=== PATIENT | female | born 1975 | race Caucasian/White ===

== ENCOUNTER 2016-10-06 07:11 | Observation (INO) | payer BC, OTHER ==
[2016-10-06] MEDS ORDERED: NS 0.9% 1000 ML* 1,000 ML IV ONE (07:54)
[2016-10-06 08:47] LABS: Hematocrit 28 % (35-47); Mean Corpuscular HGB Conc 33 g/dl (31-36); Mean Corpuscular Hemoglobin 28 pg (27-31); Mean Corpuscular Volume 85 fL (80-97); Red Blood Count 3.26 10^6/ul (4.0-5.4); Red Cell Distribution Width 17 % (10.5-15); White Blood Count 13.5 10^3/ul (3.5-10.8)
[2016-10-06 08:49] LABS: Comments Flag Yes
[2016-10-06 08:50] LABS: Add Diff/Slide Review? Manual Diff Added
[2016-10-06 08:54] LABS: Albumin 2.5 g/dL (3.2-5.2); BUN/Creatinine Ratio 12.3 (8-20); EGFR African American 99.7 (>60); EGFR Non-African American 77.5 (>60); Globulin 3.3 g/dL (2-4); Potassium 3.7 mmol/L (3.5-5.0); Total Bilirubin 0.5 mg/dL (0.2-1.0); Total Protein 5.8 g/dL (6.4-8.9)
[2016-10-06 08:59] LABS: Troponin I 0.22 ng/mL (<0.04)
--- NOTE | 2016-10-06 08:59 | RAD ---
Indication: Sepsis. Recent . History of asthma. Comparison: December 06, 2011 Technique: Upright AP 0835 hours Report: Low lung volumes with associated subsegmental atelectasis. Grossly clear pleural spaces. Upper normal heart size accounting for low lung volumes. Unremarkable central pulmonary vasculature. IMPRESSION: Hypoventilated exam with subsegmental atelectasis. No compelling evidence for pneumonia.
[2016-10-06 09:26] LABS: Immature Granulocytes 11 % (0-9); Neutrophil % 87 % (38-83)
[2016-10-06 09:29] LABS: RBC Morphology Normal (Normal)
[2016-10-06 09:33] LABS: Urine Bacteria 1+ (Absent); Urine Bilirubin Negative (Negative); Urine Glucose Negative (Negative); Urine Nitrite Positive (Negative)
[2016-10-06] MEDS ORDERED: Iohexol 350* (CONTRAST) 500 ML MDV IV ONE ×2 (09:36→09:42)
--- NOTE | 2016-10-06 10:57 | RAD ---
INDICATION: Sepsis. COMPARISON: Comparison is made with a prior chest x-ray study from October 06, 2016. TECHNIQUE: A CT angiogram of the chest was performed with intravenous following intravenous injection of 176 ml of Omnipaque 350 nonionic contrast. Contiguous axial sections were obtained from the lung apices through the lung bases. Images were reconstructed in the coronal and sagittal planes. The patient had was scanned and injected twice. The first study did not work due to a table malfunction on the CT scanner. The second study is suboptimal due to a pressure limit hit on the contrast injector. FINDINGS: There is suboptimal opacification of the pulmonary arteries limiting the study. No central pulmonary embolus is seen. The heart is within normal limits in size. No pericardial effusion is present. The thoracic aorta is normal in caliber and demonstrates homogeneous contrast opacification. No significant enlarged mediastinal or hilar lymph nodes are seen. The lungs are clear. No pleural effusion is seen. Images of the upper abdomen demonstrate mild hepatosplenomegaly. No significant focal osseous abnormality is seen. The results of this exam were discussed with the referring clinician. IMPRESSION: 1. LIMITED STUDY OF THE PULMONARY ARTERIES DESCRIBED ABOVE. NO GROSS CENTRAL PULMONARY EMBOLUS IS SEEN. CONSIDER A NUCLEAR MEDICINE LUNG PERFUSION VENTILATION STUDY FOR FURTHER EVALUATION. 2. CLEAR LUNGS.
[2016-10-06] MEDS ORDERED: Enoxaparin(*) 40 MG/0.4 ML SYR SUBCUT SCH (12:00)
[2016-10-06] MEDS ORDERED: Ondansetron INJ* 2 MG/ML VIAL IV PRN (12:04)
[2016-10-06] MEDS ORDERED: Albuterol HFA INHALER* 8 gm MDI INH PRN (12:39)
[2016-10-06] MEDS ORDERED: oxyCODONE TAB* 5 MG TAB PO PRN (12:39)
--- NOTE | 2016-10-06 12:45 | PN ---
Hospitalist Progress Note H&P dictation pending. I did discuss this patient's case with Dr. Suarez with [facility]. From a gynecological standpoint, there is no acute need that we can identify at this time. She does agree that there is an increased risk for PE/ DVT in the 6 week post-operative period (pt is 1 week post op). VQ scan is pending. She does also state that the patient's troponins will likely be elevated in the post-operative and post- periods. Additionally, she recommends not transfusing the patient for anemia unless Hgb <7.0 or patient becomes symptomatic. Encourage ambulation and continue DVT prophylaxis, unless PE is noted, for which we will full anticoagulate the patient. Wound vac has no drainage and appears to be intact; at this time, we will leave this in place. No tenderness or clear s/s of infection noted around vacuum dressing. Appreciate [facility] input. Dr. Green's office notified of patient's hospitalization. She has a follow-up appointment with them tomorrow at 1515 and should be notified if she is still here and cannot keep this appointment.
[2016-10-06] MEDS ORDERED: cefTRIAXone VIAL(*) 1,000 MG in NS 0.9% 50 ML* 50 ML IVPB SCH (13:00)
[2016-10-06] MEDS ORDERED: Perflutren Lipid Microsphere* 1.1 MG/ML VIAL IV PRN (14:37)
[2016-10-06] MEDS: Acetaminophen TAB* 325 MG PO PRN ×2 (14:58→19:10)
[2016-10-06] MEDS: Enoxaparin(*) 60 MG/0.6 ML SYR SUBCUT SCH (14:58)
--- NOTE | 2016-10-06 14:59 | RAD ---
INDICATION: Short of breath. COMPARISON: CTA chest same date TECHNIQUE: Following the administration of 15.2 millicuries of xenon gas, anterior and posterior deep breath, equilibrium, and washout phase imaging was performed. Following the intravenous administration of 6.2 millicuries of technetium 99m, MAA, anterior, posterior, lateral, and oblique imaging of the chest was performed. This examination is mildly limited due to patient size. There is a stated height and weight of 5 feet 5 inches and 405 pounds. The patient's size would not allow for lateral imaging. FINDINGS: Ventilation images show normal ventilation. The perfusion images show no segmentally absent areas of ventilation/perfusion mismatch. The probability of acute pulmonary embolus is low. IMPRESSION: LOW PROBABILITY FOR ACUTE PULMONARY EMBOLUS.
[2016-10-06] MEDS: Docusate CAP* 100 MG PO SCH (20:48)
[2016-10-06] MEDS: Ferrous Sulfate TAB* 325 MG PO SCH (20:48)
[2016-10-06] MEDS: Metoprolol Tartrate TAB* 25 MG PO SCH (20:48)
[2016-10-06] MEDS: Methyldopa TAB* 250 MG PO SCH (20:49)
--- NOTE | 2016-10-06 21:09 | CONS ---
CARDIOLOGY CONSULTATION: DATE OF CONSULT: 10/06/16 REASON FOR CONSULT: Elevated troponin. CHIEF COMPLAINT: Nausea and vomiting. HISTORY OF PRESENT ILLNESS: Mrs. Webb is a 40-year-old woman with longstanding history of morbid obesity. She delivered her first child a week ago in [place] with a section (breech presentation). The patient was sent home on a Hemovac and has had intermittent episodes of nausea. This morning, the patient had persistent nausea. She has not vomited much, but she was retching today and she got very worried about her section incision and concern about the nausea and vomiting. She also told me she thinks she had a panic attack. She had a lot of trouble breathing, felt it was related to an asthma like reaction and got very, very panicky. She described chest discomfort and points to the upper substernal area and region around it. Currently, since she has been in the emergency room with medication and hydration, she said she is feeling much, much, much better. The patient has been taking narcotics and she has been taking antibiotics at home (clindamycin). She says the episode seem to correlate with an increase in pain not necessarily with using the pain medication. She has not been eating well, has some anorexia. She says she is fine eating food and does not get nauseated, but if she eats heavier food such as meat, she will get nauseated. PAST MEDICAL HISTORY: The patient has a past medical history of longstanding hypertension, morbid obesity with a BMI of 67, asthma, history of recurrent cellulitis in the lower extremities, depression, hirsutism. PAST SURGICAL HISTORY: Includes section last week and a lipoma removal from her forehead. OUTPATIENT MEDICATIONS: Include: 1. Methyldopa 500 mg b.i.d. 2. Vitamins. 3. Tylenol. 4. She was also sent home on Colace. 5. Iron. 6. Ibuprofen. 7. Oxycodone. 8. Ascorbic acid. 9. vitamins. 10. Albuterol inhaler. Current inpatient medications include: 1. Tylenol p.r.n. 2. Albuterol inhaler. 3. Vitamin C. 4. Ceftriaxone IV. 5. Colace. 6. Lovenox 60 mg q.12 hours. 7. Iron sulfate. 8. Lactated Ringer's. 9. Aldomet (methyldopa) 500 mg b.i.d. 10. vitamins. 11. Zofran. 12. She is also receiving lactated Ringer's. ALLERGIES: Include AUGMENTIN. She is intolerant to KEFLEX and AMOXICILLIN based on ER notes. FAMILY HISTORY: Negative for coronary artery disease. SOCIAL HISTORY: The patient is a nonsmoker. No history of alcohol. She has had trouble . She feels she is too dehydrated. She was working at [employer] in the recent past. REVIEW OF SYSTEMS: See history of present illness. Negative for fevers, chills , sweats, hematuria, dysuria, no recent cellulitis problems. PHYSICAL EXAM: The patient is seated morbidly obese, appears pale and comfortable. She is 5 feet 5 inches, weighs 405 pounds with a BMI of 67.4. Vital signs on arrival to the emergency room, sinus tachycardia at 116 beats per minute, 99.8, oxygen saturation 99% on room air, blood pressure 112/73. Skin: Warm, dry, but pale, no cyanosis, no rashes. The wound VAC on the abdomen appears intact, slightly pink skin under the Tegaderm. The left cheek is hyperemic. HEENT: Pupils are equal and round. Mucous membranes moderately dry. Neck: Thick without appreciable lymphadenopathy, thyromegaly, or increased JVP but difficult to exam. Breath sounds distant, but clear, no wheezing, rales or rhonchi. Coronary: Also distant S1, S2, regular without murmurs or rubs. Abdomen: Very rotund and obese, soft, nontender. Lower extremities are thickened most suggestive of lymphedema. They are not pitting. The areas of patchy erythema and scaling skin she attributes to old areas of cellulitis raise the possibility of venous insufficiency. DIAGNOSTIC STUDIES/LAB DATA: White count 13.5, hemoglobin 9, hematocrit 28, platelets clumped, INR 1.14. Sodium 136, potassium 3.7, chloride 102, bicarb 24 , BUN 10, creatinine 0.81, glucose 76, AST 12, ALT 12, troponin #1 0.22. Troponin #3 0.39. Total protein 5.8, albumin 2.5. Urinalysis was positive for protein, blood, nitrite, esterase positive, 3+ white cells and positive for bacteria. She also had squamous epithelial cells present. The patient's chest x-ray on admission did not show evidence of acute disease. The CTA was limited with suboptimal opacification of the pulmonary arteries. No gross central pulmonary emboli seen. Her ECG on arrival at 9:20 this morning showed sinus tachycardia, 108 beats a minute, QRS axis +60 with normal AV and IV conduction time. ST segment is unremarkable. Repeat EKG at 11:58 shows sinus rhythm at 95 beats a minute. Normal ST and T-waves. Lipids from 04/26/13 shows total cholesterol of 158, triglycerides 166, LDL cholesterol 78, HDL cholesterol 47. SUMMARY: Claudia Webb is a 40-year-old woman one week having delivered a healthy girl via due to breech positioning. The patient did well, said she felt fine in the hospital but on getting home, she developed intermittent nausea, small amounts of vomiting but presented to the hospital because of lots of retching, shortness of breath and feeling panicky and anxious about the impact on her section wound. Cardiac issues include mild elevation of troponins, her history of chest pain and shortness of breath. Elevated troponin have a differential of pulmonary embolism with her history of morbid obesity and recent delivery. She could have a peripartum cardiomyopathy and with her self described panic attack, she could have a form of Takotsubo syndrome and she could have underlying atherosclerotic heart disease. I recommend continuing with serial troponins as an option to start a low dose beta- nuno. As her lungs are clear, I think this is safe even with her asthma, consider just Toprol 25 mg a day. I wait the results of her echo and I concur with following up on additional evaluation for the possibility of pulmonary embolus. The nausea and vomiting is the patient's chief complaint, I suspect if all her nausea and vomiting were ischemic, her trops would be higher, so I think it is much more likely to be related to chronic pain medication possibly the clindamycin and there may be some social factors involved as well. I would try to adjust her medications to minimize medication induced or iatrogenic induced nausea, and I can concur with hydration as there is no evidence of congestive heart failure now, liberal IV hydration is fine. She appears to have urinary tract infection, the addition of ceftriaxone is noted and await the culture results. We will follow with you for now. I do not recommend a cardiac catheterization at this point and with her BMI of 67 and being over 400 pounds, she is not a candidate for a stress test with imaging as she is too big for our table. Options down the road for a stress test would a plain treadmill if we can find a treadmill that can handle her weight. For full risk factor stratification, I would consider getting lipids if she has not had them been done in the last year. CC: Hospitalist Service; Dr. Charles Green, [employer] [place]; Dr. Marciano Rojo* [id number]/[facility] #: [id number] [facility]ON HOSPITALSammy
--- NOTE | 2016-10-06 21:36 | ECHO ---
Patient: CARMENZA MCELROY [facility] Rec#: [id number] : 1975 Date: 10/06/2016 Age: 40y Height: 165.1 cm / 65.0 in Weight: 183.7 kg / 404.9 lbs Sex: F BSA: 2.7 Room#: 450 Admit Date#: 10/06/2016 Type: Inpatient Referring: Sabine Allen Reading: Amisha Tello MD Pick Up And Delivery Driver: Vicki Liu RN RDCS CC: Marciano Rojo MD Transthoracic Echocardiogram Indication: Elevated troponin levels BP: 130/60 HR: 93 Rhythm: NSR Findings History: HTN, asthma, DJD, morbid obesity, sepsis, S/P 7 days ago with wound vac placement Technical Comments: The study is technically limited due to poor apical windows. The study is technically limited due to patient body habitus. The study was technically limited due to the patient's inability to lay in the left lateral decubitus position. Completed at 1730. Left Ventricle: The left ventricular chamber size is normal. Mild concentric left ventricular hypertrophy is observed. Global left ventricular wall motion and contractility are within normal limits. The left ventricle appears hyperdynamic.normal to hyperdynamic. The estimated ejection fraction is 60-65%. Normal left ventricular diastolic filling is observed. Left Atrium: The left atrium is mildly dilated. Right Ventricle: The right ventricle wall thickness is moderately increased. The right ventricular cavity size is normal. The right ventricular global systolic function is mildly to moderately reduced. Right Atrium: The right atrium is mildly dilated. Aortic Valve: The aortic valve leaflets are mildly thickened. There is no evidence of aortic regurgitation. There is no evidence of aortic stenosis. Mitral Valve: The mitral valve leaflets are mildly thickened. There is mild mitral regurgitation. There is no evidence of mitral stenosis. Tricuspid Valve: The tricuspid valve leaflets are normal. There is mild to moderate tricuspid regurgitation.closer to moderate. There is evidence of mild pulmonary hypertension. Pulmonic Valve: The pulmonic valve structure is not well visualized. There is a trace pulmonic regurgitation. There is no pulmonic stenosis. Pericardium: There is no significant pericardial effusion. A pericardial fat pad is visualized. Aorta: There is no dilatation of the ascending aorta. There is no dilatation of the aortic arch. The aortic root is normal in size. Pulmonary Artery: The main pulmonary artery is not well visualized. Venous: The inferior vena cava appears normal in size. There is a greater than 50% respiratory change in the inferior vena cava dimension. Contrast: Definity was used to optimize study. A total of 2 ml of diluted Definity was administered IV to enhance the imaging of the LV and RV. See Images 2-17. Conclusions The study is technically limited due to patient body habitus. Definity contrast agent was used to optimize study. Mild concentric left ventricular hypertrophy is observed. Global left ventricular wall motion and contractility are within normal limits. The left ventricle shows normal to hyperdynamic systolic function and normal diastolic filling pattern. The estimated ejection fraction is 60-65%. The right ventricle wall thickness is increased. The right ventricular global systolic function is mildly to moderately reduced. The aortic valve leaflets are mildly thickened with normal function. There is mild mitral regurgitation. There is mild to moderate tricuspid regurgitation (closer to moderate). There is evidence of mild pulmonary hypertension: PA pressure is 41 mmHg. No prior echo available to compare. Measurements Name Value Normal Range RVDdMajor (2D) 3.9 cm (2.2 - 4.4) RVAW (2D) 1 cm (0.2 - 0.5) RAd ISD 4CH 5.3 cm (3.4 - 4.9) RA (A4C)W 4.4 cm (2.9 - 4.6) IVSd (2D) 1.1 cm (0.6 - 1) LVPWd (2D) 10 cm (0.6 - 1) LVIDd (2D) 4.5 cm (3.6 - 5.4) LVIDs (2D) 3.3 cm - LV FS (2D) 26 % (25 - 45) Aortic Annulus 2.2 cm (1.4 - 2.6) Ao root diameter (2D) 3 cm (2.1 - 3.5) Ascending Ao 3 cm (2.1 - 3.4) Aortic arch 2.6 cm (1.8 - 3.4) LA dimension (AP) 2D 3.9 cm (2.3 - 3.8) LAd ISD 4CH 5.4 cm (2.9 - 5.3) LA ISD 4CH W 4.9 cm (2.5 - 4.5) Name Value Normal Range LA ESV SP 4CH (A/L) 68 ml - LA ESV SP 2CH (A/L) 54 ml - LA ESV BP (A/L) 67 ml - LA ESV BP (A/L) index 25.2 ml/m2 - LA ESV SP 4CH (MOD) 59 ml - LA ESV SP 2CH (MOD) 52 ml - Name Value Normal Range MV E-wave Vmax 1.4 m/sec - MV deceleration time 186 msec - MV A-wave Vmax 0.7 m/sec - MV E:A ratio 2.1 ratio - LV septal e' Vmax 0.11 m/sec - LV lateral e' Vmax 0.14 m/sec - LV E:e' septal ratio 12.7 ratio - LV E:e' lateral ratio 10 ratio - Name Value Normal Range AV Vmax 1.9 m/sec - AV VTI 36.1 cm - AV peak gradient 14.7 mmHg - AV mean gradient 8.4 mmHg - LVOT Vmax 1.6 m/sec - LVOT VTI 34.5 cm - LVOT peak gradient 10 mmHg - LVOT mean gradient 5.5 mmHg - ALLYSSA Vmax 1.3 m/sec - Name Value Normal Range MV Vmax 1.6 m/sec - MV VTI 27.6 cm - MV peak gradient 10.8 mmHg - MV mean gradient 3.3 mmHg - MV PHT 52 msec - MVA (PHT) 4.2 cm2 - Name Value Normal Range TR Vmax 3.1 m/sec - TR peak gradient 38 mmHg - RAP 3 mmHg - RVSP 41 mmHg - IVC diameter 1.8 cm - Name Value Normal Range PV Vmax 1.1 m/sec -
--- NOTE | 2016-10-06 22:24 | HP ---
MEDICINE HISTORY AND PHYSICAL: DATE OF ADMISSION: 10/06/16 PROVIDER: Deidre Sweet NP. ATTENDING PHYSICIAN: Dr. Rohan Galvan *(as dictated by Deidre Sweet NP). CONSULTING PHYSICIAN: Dr. Amisha Tello, Cardiology. PRIMARY CARE PHYSICIAN: Dr. Marciano Rojo. CHIEF COMPLAINT: Nausea, vomiting. HISTORY OF PRESENT ILLNESS: Ms. Webb is a 40-year-old female who was recently discharged from [facility] on 10/03/16, after undergoing C -section and delivery of a healthy female baby that was born 27 days early. Ms. Webb has been followed at [facility] by Dr. Green throughout her care. The patient was referred to [place] due to her high risk and comorbidities. She is 2, para 1, with a history of one spontaneous . Ms. Webb underwent a on 09/29/16, due to spontaneous rupture of membranes. She tolerated the surgery well by report on the patient and had a low transverse incision that was treated with a wound VAC. The patient reports no drainage and she has been discharged to home on the wound VAC. She has been home since 10/03/16 and since she has been home, has reported intermittent nausea and vomiting. She denies any diarrhea. She reports having a few episodes of vomiting a day and states that the nausea is off and on, and usually immediately precedes her urge to vomit. She also reports having dry heaving. Her last bowel movement was today and it was normal. She reports poor p.o. intake secondary to nausea. She has been able to drink some fluids. She reports a low-grade fever today in the 100s at home. She denies any other signs or symptoms or concerns for infection at home. She states that she has not had much output from the wound VAC and has not noticed any increased pain or redness around the wound VAC. She does report chronic cellulitis to her lower extremities, but states that they look unchanged and denies any increasing pain, swelling, or redness. This morning, she does report having chills and shaking. She also describes what she calls a panic attack and describes a period where she had difficulty catching her breath. She reports that she had attempted to use her asthma inhaler, but states that she did not feel like it got into her lungs. She was able to calm herself down and states that her breathing improved. The patient specifically denies chest pain and only reports this one episode of shortness of breath this morning. Again, she reports subjective chills this morning. She reports decreased p.o. intake. Denies any sick contacts. She denies any new edema to the lower extremities. She denies any productive cough , but states she has a dry cough due to dehydration. She reports controlled abdominal pain that only hurts with cough and retching at the site of her wound VAC. She reports constipation. She reports dark urine, but denies any dysuria or frequency of urine. She denies any new focal weakness or sensory loss. She denies any new visual, hearing, or swallowing complaints. She denies any new muscle or joint pain. She denies any new rashes or lesions. I did call Dr. Green's office. They said that she is due for an appointment and checkup tomorrow, on 10/07/16, at 1515. I did notify them that she is here. If she is discharged on 10/07/16, they will honor this appointment time with her if she is able to make it. PAST MEDICAL HISTORY: Includes: 1. Hypertension. 2. Morbid obesity with a BMI of 57. 3. Asthma. 4. History of chronic cellulitis in bilateral lower extremities. 5. History of depression. 6. Degenerative joint disease. 7. Degenerative disk disease in the neck. HOME MEDICATIONS: 1. Methyldopa 500 mg b.i.d. 2. Docusate 100 mg b.i.d. 3. vitamin 1 tab daily. 4. Albuterol inhaler 2 puffs inhaled q.6 hours p.r.n. 5. Ferrous sulfate 65 mg b.i.d. 6. Oxycodone 5 mg q.6 hours p.r.n. 7. Ibuprofen 600 mg q.6 hours p.r.n. 8. Ascorbic acid 1000 mg daily. ALLERGIES: AUGMENTIN which causes nausea. FAMILY HISTORY: She denies any history of coronary artery disease or cancer in her family. She reports a father and a maternal grandmother with diabetes. She states that her mother has a history of low blood sugars. SOCIAL HISTORY: She denies any tobacco, alcohol, or illicit drug use. She works at [employer] in [place], but has been off of work since July due to her . She has her , and Ciaran Webb is her surrogate decision maker in case of an emergency. REVIEW OF SYSTEMS: A 14-point review of systems was completed. All pertinent positives and negatives are included in the HPI. All others not mentioned are negative. PHYSICAL EXAMINATION GENERAL: Ms. Webb is a very pleasant 40-year-old female, morbidly obese, who is sitting up the recliner chair in no acute distress. VITAL SIGNS: Temperature 99.5, heart rate 101, respiratory rate 18, blood pressure 120/60, and O2 saturation 98% on room air. HEENT: Head is atraumatic, normocephalic. Face is symmetrical. Pupils are equal, round, and reactive to light. Sclerae are anicteric. External ears and nose are normal. Oral mucosa appears dry. NECK: Supple. No lymphadenopathy appreciated. No JVD noted. RESPIRATORY: Lungs are clear to auscultation. There is no accessory muscle use. CARDIAC: S1, S2, heart sounds. Regular rate and rhythm. No murmurs, rubs, or gallops. The patient has mild trace pitting edema to the lower extremities and 1+ distal pulses. ABDOMEN: Obese, soft. There is some mild tenderness in the area of the patient 's wound VAC site, and bowel sounds are present times all 4 quadrants. There is no rebound or guarding. There is no hepatosplenomegaly noted. MUSCULOSKELETAL: There is no clubbing or cyanosis. The patient has full range of motion. EXTREMITIES: The patient appears to have some chronic cellulitis to the lower extremities, to both shins, and to the back of the calves. No open areas noted. No drainage noted. SKIN: There is a wound VAC that is clean, dry, and intact to the low abdomen. No drainage is noted in the wound VAC canister. There is some mild redness at the site of the tape that appears to be a contact dermatitis. The patient denies pruritus at the time of my assessment. She states that it does not look any different from previous. In terms of her lower extremities, there is notable redness and dryness that the patient states is chronic. She is not currently being treated for this cellulitis, but reports that this is within normal limits. NEUROLOGIC: Cranial nerves II through XII are grossly intact. The patient is able to move all extremities and follow commands. Sensation to the lower extremities is intact to light touch. PSYCH: She is alert and oriented x3. Her affect is appropriate. LABORATORY DATA AND DIAGNOSTIC STUDIES: CBC: WBC 13.5, hemoglobin 9.0, hematocrit 28, platelet count approximately 488. INR 1.14. CMP: Sodium 136, potassium 3.7, chloride 102, carbon dioxide 24, BUN 10, creatinine 0.81, glucose 76, lactic acid 1.6, calcium 8.0. AST 12, ALT 12, alk phos 115. Troponin 0.22. Albumin 2.5. Urinalysis shows 1+ protein, 3+ blood, positive nitrates, leukocyte esterase, wbc's, rbc's, and bacteria. EKG shows sinus rhythm. No significant ST changes. CTA of the chest and thorax, impression: 1. Limited study of the pulmonary arteries as described above. No gross central pulmonary embolus is seen. Consider nuclear medicine lung perfusion/ ventilation study for further evaluation. 2. Clear lungs. Chest x-ray: Hypoventilated exam with subsegmental atelectasis. No compelling evidence for pneumonia. ASSESSMENT AND PLAN: Ms. Webb is a 40-year-old female with a past medical history of recent section, hypertension, morbid obesity, asthma, chronic cellulitis, and depression, who presents today with nausea, vomiting, and concern for an elevated troponin as well as dehydration secondary to emesis. We will admit her as an inpatient to the telemetry floor. The plan is as follows: 1. Elevated troponin: Admit to telemetry. The patient's initial troponin is 0.22. The repeat troponin was 0.39. The patient does not complain of chest pain and her EKG does not show any ST changes or T-wave inversions that are consistent with acute coronary syndrome; however, her rise in troponins are concerning. In the 1-week postoperative period, there is concern for potential PE and the patient was not on anticoagulation at home. The CTA was inconclusive , so I will attempt to get a V/Q scan. Per Nuclear Medicine, this can be done up to 440 pounds. So, the patient does meet the criteria necessary to get the scan performed. Additionally, we will obtain an echocardiogram and I will consult Cardiology for their input as well. I did have a call-out to the on- call ACTIVATED SLUDGE ATTENDANT for their input. It may be that this is secondary to the patient's recent illness and dehydration; however, this is hard to say at this point. Continue to monitor closely and we will continue to trend her troponins. 2. Nausea, vomiting: I question if this may be a viral gastroenteritis given her low-grade fever today. She does not complain of any diarrhea and states that her bowel movement today was normal. This also may be secondary to medications such as oxycodone. The patient was also previously on clindamycin, although this has been discontinued. We will obtain records from [place] in order to better understand what has preceded this. We will support her with IV hydration as well as p.r.n. antiemetics. I will also order her a clear liquid diet and advance her diet as tolerated. 3. Dehydration: The patient does appear to be dry. We will hydrate her with lactated Ringer's, recheck labs in the morning. Encourage clear liquid p.o. intake. 4. Urinary tract infection: The sample is likely not a clean catch, but given the patient's low-grade fever as well as positive nitrites, leukocyte esterase, and bacteria, I will start her on ceftriaxone while urine cultures are pending. 5. Chronic cellulitis: Appears stable by patient report. Continue to monitor. The patient has not received any antibiotic treatment for the cellulitis recently. 6. Hypertension: Continue home methyldopa. 7. Recent : The patient is attempting to breast-feed. Breast pump and breast-feeding are encouraged and I have ordered a breast pump for the patient. She has been encouraged to bring her home electronic pump in as well. We will encourage p.o. intake and IV hydration in order to help her with her milk production. We will also continue her vitamin. 8. Asthma: Continue p.r.n. albuterol. 9. Fluids, electrolytes, and nutrition: She is ordered a clear liquid diet, which we will advance as tolerated. Continue IV hydration. 10. DVT prophylaxis: She is ordered subcu Lovenox. 11. Code status: The patient is a full code. TIME SPENT: Time spent on this admission was approximately 60 minutes, more than half that time was spent [id number] with the patient obtaining history and physical, performing physical examination, and reviewing the plan of care. Plan of care was also reviewed with my attending, Dr. Galvan, who is in agreement. DEIDRE SWEET NP CC: Dr. Marciano Rojo * [id number]/[facility] #: [id number] JONNY
[2016-10-07] MEDS: Enoxaparin(*) 60 MG/0.6 ML SYR SUBCUT SCH ×2 (01:44→12:24)
[2016-10-07] MEDS: Prenatal Vitamin TAB PO SCH ×2 (05:52→09:33)
[2016-10-07 05:55] LABS: Add Diff/Slide Review? Morphology Added; Hematocrit 26 % (35-47); Hemoglobin 8.4 g/dl (12.0-16.0); Mean Corpuscular HGB Conc 33 g/dl (31-36); Mean Corpuscular Hemoglobin 28 pg (27-31); Mean Corpuscular Volume 85 fL (80-97); Mean Platelet Volume 8 um3 (7.4-10.4); Red Cell Distribution Width 17 % (10.5-15); White Blood Count 15.3 10^3/ul (3.5-10.8)
[2016-10-07 06:09] LABS: BUN/Creatinine Ratio 9.9 (8-20); Calcium 7.6 mg/dL (8.6-10.3); EGFR African American 99.7 (>60); EGFR Non-African American 77.5 (>60); Potassium 3.5 mmol/L (3.5-5.0)
[2016-10-07] MEDS ORDERED: Ascorbic Acid TAB* 500 MG PO SCH (09:00)
[2016-10-07] MEDS: Metoprolol Tartrate TAB* 25 MG PO SCH (09:21)
[2016-10-07] MEDS: Docusate CAP* 100 MG PO SCH (09:21)
[2016-10-07] MEDS: Ferrous Sulfate TAB* 325 MG PO SCH (09:25)
[2016-10-07] MEDS: Methyldopa TAB* 250 MG PO SCH (09:29)
[2016-10-07 09:36] VITALS: BP 126/68
--- NOTE | 2016-10-07 10:24 | PN ---
Subjective Date of Service: 10/07/16 Interval History: Patient reports she feels much, much better today. Denies fever or chills. No CP or SOB. Reports she thinks she was dehydrated as she now is "making more breast milk". Has been ambulating around room with no complaints. Denies dysuria or hematuria. Reports her appetite is coming back and has no further n/ v since admission Objective Active Medications: Acetaminophen (Tylenol Tab*) 650 mg PO Q4H PRN PRN Reason: FEVER/PAIN Last Admin: 10/06/16 19:10 Dose: 650 mg Albuterol (Ventolin Hfa Inhaler*) 2 puff INH Q6H PRN PRN Reason: SHORTNESS OF BREATH Ascorbic Acid (Vitamin C Tab*) 1,000 mg PO DAILY [facility] Last Admin: 10/07/16 09:20 Dose: 1,000 mg Docusate Sodium (Colace Cap*) 100 mg PO BID [facility] Last Admin: 10/07/16 09:21 Dose: 100 mg Enoxaparin Sodium (Lovenox(*)) 60 mg SUBCUT Q12H [facility] Last Admin: 10/07/16 01:44 Dose: 60 mg Ferrous Sulfate (Ferrous Sulfate Tab*) 325 mg PO BID [facility] Last Admin: 10/07/16 09:25 Dose: 325 mg Ceftriaxone Sodium 1,000 mg/ (Sodium Chloride) 50 mls @ 200 mls/hr IVPB Q24H [facility] Last Admin: 10/06/16 14:58 Dose: 200 mls/hr Methyldopa (Aldomet Tab*) 500 mg PO BID [facility] Last Admin: 10/07/16 09:29 Dose: 500 mg Metoprolol Tartrate (Lopressor Tab*) 12.5 mg PO Q12HR [facility] Last Admin: 10/07/16 09:21 Dose: 12.5 mg Multivitamins ( Vitamin Tab*) 1 tab PO DAILY [facility] Last Admin: 10/07/16 09:33 Dose: Not Given Ondansetron HCl (Zofran Inj*) 4 mg IV Q6H PRN PRN Reason: NAUSEA Last Admin: 10/06/16 19:14 Dose: 4 mg Perflutren Lipid Microsphere (Definity*) 1.1 mg IV ONCE PRN PRN Reason: TO ENHANCE ECHOCARDIOGRAM IMAG Vital Signs 10/06/16 10/06/16 10/06/16 11:00 11:30 11:51 Temperature Pulse Rate 101 101 102 Respiratory Rate Blood Pressure 121/56 120/60 116/55 (mmHg) O2 Sat by Pulse 97 99 98 Oximetry 10/06/16 10/06/16 10/06/16 12:00 12:56 13:15 Temperature 97.6 F 97.6 F Pulse Rate 97 97 97 Respiratory 18 18 Rate Blood Pressure 126/63 125/53 125/53 (mmHg) O2 Sat by Pulse 99 100 100 Oximetry 10/06/16 10/06/16 10/06/16 13:58 16:45 17:39 Temperature 99.2 F Pulse Rate 98 Respiratory 18 18 Rate Blood Pressure 130/60 (mmHg) O2 Sat by Pulse 100 98 Oximetry 10/06/16 10/06/16 10/06/16 18:15 19:43 20:00 Temperature 98.7 F 99.0 F Pulse Rate 106 Respiratory 17 20 Rate Blood Pressure 131/58 (mmHg) O2 Sat by Pulse 98 98 Oximetry 10/07/16 10/07/16 10/07/16 00:28 03:26 07:33 Temperature 98.5 F 99.9 F Pulse Rate 90 91 Respiratory 20 20 14 Rate Blood Pressure 149/67 122/60 (mmHg) O2 Sat by Pulse 98 100 Oximetry 10/07/16 10/07/16 10/07/16 07:34 07:43 07:47 Temperature 98.1 F 98.0 F Pulse Rate 86 89 Respiratory 14 20 20 Rate Blood Pressure 140/90 126/68 (mmHg) O2 Sat by Pulse 99 94 Oximetry Oxygen Devices in Use Now: None Appearance: morbidly obese female sitting on the side of the bed A+O x3 in NAD Eyes: No Scleral Icterus, PERRLA Ears/Nose/Mouth/Throat: NL Teeth, Lips, Gums, Mucous Membranes Moist Neck: NL Appearance and Movements; NL JVP Respiratory: Symmetrical Chest Expansion and Respiratory Effort, Clear to Auscultation Cardiovascular: NL Sounds; No Murmurs; No JVD, RRR Abdominal: - - obese, soft, wound vac intact draining minimal brown fluid. no erythema noted around vac - mild tenderness to palpation. Lymphatic: No Cervical Adenopathy Extremities: No Edema, No Clubbing, Cyanosis, - - 1+ B/L Skin: - - chornic mild erythema to LE bilaterally - does not appear to be cellulitis Neurological: Alert and Oriented x 3, NL Sensation, NL Gait, NL Muscle Strength and Tone Lines/Tubes/Other Access: Clean, Dry and Intact Peripheral IV Nutrition: Taking PO's Result Diagrams: 10/07/16 05:30 10/07/16 05:30 Assess/Plan/Problems-Billing Assessment: Ms. Webb is a 40 yo morbidly obese female, hx of panic attacks, s/p 1 week ago with wound vac with delivery of healthy female baby born 27 days early, who presented with intermittent nausea/vomiting, - Patient Problems (1) Sepsis Comment: - sepsis on admission with tachycardia, Increased RR, Leukocyosis with bands, elevated troponin. Now resolved. suspect source is UTI with positive urine cx forwing ecoli. pts wound vac is draining small amount of dark brown substance. No fevers/chills/N/V. Leukocytosis mildy up from yesterday but bands have resolved and patient clinically is back to her baseline. - Plan for cefpodoxime on DC; urine cx ecoli with colony count > 100K - blood cx no growth day 1 (2) HTN (hypertension) Comment: - controlled on home medication Methyldopa and metoprolol. (3) Elevated troponin Comment: - No CP or SOB at rest or with ambulation - troponin peaked at 0.46. consultation by inspector final assembly conveyor line Dr. Amisha Tello. echocardiogram showed good LV function with EF 60-65% but noted decreased Right Ventricular function. underwent (both CTA and VQ scan) placing her at low risk with no evidence of PE. I spoke to Dr. Garrett over the phone today who recommended outpt stress test and f/u with Dr. Tello in 2-3 weeks as ept was refusing stress test today due to her recent and wound vac. Per Dr. Garrett he suspects her RV dysfunction is secondary obesity and asthma. Follow up with Dr. Tello in 2-3 weeks and undergo a stress test. Dr. Tello started Beta Dinesh (Metoprolol) which was started on admission. (4) Morbid obesity with BMI of 60.0-69.9, adult (5) DVT prophylaxis Comment: lovenox BID for DVTp due to pts weight- per cards and OBGYN pt should remain on the lovenox 6 weeks [id number]. Status and Disposition: OBV. Plan for DC to home. F/u with Dr. Peter LANDEROS in [place] today.
--- NOTE | 2016-10-08 01:43 | DS ---
DISCHARGE SUMMARY: DATE OF ADMISSION: 10/06/16 DATE OF DISCHARGE: 10/07/16 PROVIDER: Shanice Jacobson NP ATTENDING PHYSICIAN: Dr. Galvan* (report dictated by Shanice Jacobson NP). PRIMARY CARE PROVIDER: Dr. Marciano Rojo. STOPE MINER: Dr. Charles Green, [facility], [place], [place]. DISCHARGE DIAGNOSES: 1. Sepsis secondary to Escherichia coli urinary tract infection. 2. Dehydration. 3. Elevated troponin, suspected an ischemia. 4. Right ventricular dysfunction thought to be secondary to obesity, asthma, pulmonary embolism ruled out. 5. Morbid obesity. 6. Status post recent 1 week ago with postop wound VAC. 7. Asthma. SECONDARY DIAGNOSES: 1. Hypertension. 2. History of chronic cellulitis in bilateral lower extremities. 3. History of depression. 4. Degenerative joint disease. 5. Degenerative disk disease in neck. DISCHARGE MEDICATIONS: 1. Methyldopa 500 mg p.o. b.i.d. 2. Colace 100 mg p.o. b.i.d. 3. vitamin 1 tab p.o. daily. 4. Albuterol HFA inhaler 2 puffs INH q.6 hours p.r.n. 5. Ferrous sulfate 65 mg p.o. b.i.d. 6. Oxycodone 5 mg p.o. q.6 hours p.r.n. 7. Ibuprofen 600 mg p.o. q.6 hours p.r.n. 8. Vitamin C 100 mg p.o. daily. 9. Metoprolol tartrate 12.5 mg p.o. b.i.d., new medication. 10. Lovenox 60 mg subcu q.12 hours for DVT prophylaxis, new medication. 11. Cefpodoxime 200 mg p.o. q.12 hours for 7 days for E. coli urinary tract infection, safe for breast feeding. HISTORY OF PRESENT ILLNESS AND HOSPITAL COURSE: Please see history and physical by Sabine Allen NP, for full admission details but in summary, this is a 40-year- old female, who was recently discharged from [place] on 12/15 after undergoing a delivering a healthy female baby that was born 27 days early and was sent home with abdominal wound VAC. The patient was referred to [place] due to her high-risk and comorbidities and has been followed by Dr. Green, STOPE MINER, [facility] for her care. The patient underwent her on 09/29/16, due to spontaneous rupture of membranes. She reported she tolerated the surgery well and had a low transverse incision that was treated with a wound VAC, and which she was sent home with, with her followup being today, October 07. Yesterday, the patient presented to the emergency department with concern for nausea and vomiting, and which she reports she has had intermittently since she has been home. She denied any diarrhea. She reported that she was having dry heaving and poor p.o. intake secondary to the nausea and noted a low-grade temperature of 100 at home. She denied dysuria or hematuria. No cough or upper respiratory illness. No increased pain around her wound VAC or any abnormal drainage. She actually reported that she had had no drainage out of her wound VAC for a couple of days. She initially thought that her asthma was bothering her and due to that she had a panic attack. She used her asthma inhaler and was able to calm herself down and her breathing improved. On evaluation in the emergency department, she was noted to be in sepsis criteria with leukocytosis of 13.5 with a left shift with bands of 11, tachycardia with a heart rate of 116 , and increased respirations. As well, she was noted to have a troponin of 0.22. She denied chest pain but she had complained of some mild chest discomfort secondary to her asthma on presentation. The patient was admitted to the hospitalist service to telemetry with trending of troponins. Her troponins trended up and peaked at 0.46. She had no chest pain or shortness of breath or EKG changes noted. She was started on ceftriaxone for an abnormal urinalysis, which ended up growing E. coli with a colony count of 100,000. The patient was seen in consultation by shredder operator, Dr. Tello, who did not think that this is acute coronary syndrome. The patient underwent a CTA to rule out pulmonary embolism, which showed no pulmonary embolism but due to her weight, she was recommended to undergo a V/Q scan and which placed her at low risk. Cardiology started the patient on a low-dose beta nuno of metoprolol 12.5 mg p.o. daily. Her transthoracic echocardiogram showed normal LV function of 60% to 65% with global left ventricular wall motion and contractility within normal limits with right ventricular global systolic function mildly to moderately reduced, with mild mitral regurgitation, and [id number] tricuspid regurgitation with evidence of mild pulmonary hypertension. It was thought that her cor pulmonale was secondary to obesity and asthma. I spoke with shredder operator, Dr. Garrett, who is prevention specialist today, who recommended the patient could be discharged home with followup with Dr. Tello as an outpatient. There was a stress test ordered for the patient this morning; however, due to her recent and wound VAC, the patient did not think she would tolerate the stress test, and for the patient to follow up with Dr. Tello in 2 to 3 weeks to be scheduled for a cardiac treadmill stress test. The provider, Sabine Allen NP, did discuss with Dr. Tello as well as OB/ CARE CLINICIAN physician, Dr. Suarez, and the recommendation was to place the patient on Lovenox DVT prophylaxis as the patient is high risk for DVT or pulmonary embolism up to 6 weeks postop. The patient has been started on Lovenox 60 mg subcu q.12 hours as recommended by our pharmacy for DVT prophylaxis due to her obesity. Today, on evaluation, the patient reports that she feels "much much better." The patient denies any fevers or chills. The patient is stable for discharge home. She has remained afebrile. Tachycardia has resolved. I suspect this was mild sepsis secondary to E. coli urinary tract infection, also presenting with some mild dehydration. It is noted that the patient's protein and albumin are low with protein being 5.8 and albumin 2.5. The patient is encouraged to increase her protein intake and she has been referred to [facility] for nutrition consultation as well as weight loss recommendations and support. I spoke with Dr. Green, STOPE MINER, at [facility], who has been updated. DISCHARGE PLAN: 1. Discharge the patient to home. 2. Follow up with Dr. Green today at [address] Green when I spoke to him over the phone, he thought that she should possibly come tomorrow and be seen 24 hours post discharge; however, the patient reports her new infant has materials and corrosion engineer followup tomorrow. The patient plans on calling Dr. Green's office to discuss with them. 3. Follow up with Dr. Rojo within 1 week. 4. Follow up with Dr. Tello within 2 to 3 weeks. The patient was instructed she needs to call and make this appointment herself. 5. The patient was instructed if she has any worsening or concerning symptoms to return to the emergency department. She was encouraged to increase her fluid intake as well as stated-above protein intake. 6. Follow up at [facility]. TIME SPENT: Approximately 75 minutes was spent on this discharge. SHANICE JACOBSON NP CC: Dr. Marciano Rojo; Dr. Charles Green, [place], [place]* [id number]/[facility] #: [id number] MTDD
--- NOTE | 2016-10-08 20:18 | ED ---
Ledy Cristobal Salem, scribed for Harris Hernandez MD on 10/06/16 at 0756 . Abdominal Pain/Female - HPI Summary HPI Summary: Patient is a 40 y/o female who presents to the ED per EMS with abd pain and vomiting since this morning. She reports she had an emergency 7 days ago and went home 3 days ago (she was 36 weeks ). She states she was vomiting before the and this morning, she experienced chills, panic, and vomiting. She reports no other complications. - History of Current Complaint Chief Complaint: EDAbdPain Stated Complaint: NAUSEA/VOMITING Time Seen by Provider: 10/06/16 07:44 Hx Obtained From: Patient Hx Last Menstrual Period: december 06 Onset/Duration: Gradual Onset, Lasting Hours Severity Initially: Moderate Severity Currently: Moderate Pain Intensity: 8 Pain Scale Used: 0-10 Numeric Location: Diffuse Aggravating Factor(s): Nothing Alleviating Factor(s): Nothing Associated Signs and Symptoms: Positive: Vomiting, Other: - Chills. Allergies/Adverse Reactions: Allergies Allergy/AdvReac Type Severity Reaction Status Date / Time Amoxicillin [From Augmentin] AdvReac GI Verified 03/03/16 00:55 Clavulanic Acid AdvReac GI Verified 03/03/16 00:55 [From Augmentin] Home Medications: Home Medications Albuterol HFA INHALER* [Ventolin HFA Inhaler*] 2 puff INH Q6H PRN 10/06/16 [ History Confirmed 10/06/16] Ascorbic Acid TAB* [Vitamin C TAB*] 1,000 mg PO DAILY 10/06/16 [History Confirmed 10/06/16] Docusate CAP* [Colace Cap*] 100 mg PO BID 10/06/16 [History Confirmed 10/06/16] Ferrous Sulfate [Feosol] 65 mg PO BID 10/06/16 [History Confirmed 10/06/16] Ibuprofen TAB* [Motrin TAB* 600 MG] 600 mg PO Q6H PRN 10/06/16 [History Confirmed 10/06/16] Methyldopa TAB* [Aldomet TAB*] 500 mg PO BID 10/06/16 [History Confirmed ] Vit W/ Ferrous Fumara [Pnv Plus Multivi 27-1 & 312 mg] 1 tab PO DAILY 10/06/16 [History Confirmed 10/06/16] oxyCODONE TAB* [Roxycodone TAB 5 mg*] 5 mg PO Q6H PRN 10/06/16 [History Confirmed 10/06/16] PMH/Surg Hx/FS Hx/Imm Hx Cardiovascular History: Reports: Hx Hypertension Respiratory History: Reports: Hx Asthma - Surgical History Surgery Procedure, Year, and Place: 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 , Other - Hypoglycemic. - Social History Alcohol Use: None Hx Substance Use: No Substance Use Type: Reports: None Hx Tobacco Use: No Smoking Status (MU): Never Smoked Tobacco Review of Systems Positive: Chills. Negative: Fever Positive: Abdominal Pain, Vomiting All Other Systems Reviewed And Are Negative: Yes Physical Exam Triage Information Reviewed: Yes Vital Signs On Initial Exam: Initial Vitals Temp Pulse Resp BP Pulse Ox 99.8 F 116 24 112/73 99 10/06/16 07:20 10/06/16 07:20 10/06/16 07:20 10/06/16 07:20 10/06/16 07:20 Vital Signs Reviewed: Yes Appearance: Positive: Well-Appearing, No Pain Distress Skin: Positive: Warm, Skin Color Reflects Adequate Perfusion, Dry Head/Face: Positive: Normal Head/Face Inspection Eyes: Positive: Normal Neck: Positive: Supple, Nontender Respiratory/Lung Sounds: Positive: Clear to Auscultation, Breath Sounds Present Cardiovascular: Positive: RRR Abdomen Description: Positive: Other: - Mild to moderate tenderness around wound. Mild erythema, but non-tender around the wound on abd. Bandage is in place. Bowel Sounds: Positive: Present Musculoskeletal: Positive: Normal Neurological: Positive: Normal Psychiatric: Positive: Normal, Affect/Mood Appropriate - Scotty Coma Scale Coma Scale Total: 15 Diagnostics - Vital Signs Vital Signs Temp Pulse Resp BP Pulse Ox 10/06/16 07:38 99.8 F 115 114/53 97 10/06/16 07:20 99.8 F 116 24 112/73 99 - Laboratory Lab Results: Lab Results 10/06/16 10/06/16 10/06/16 Range/Units 08:15 08:15 08:15 WBC 13.5 H (3.5-10.8) 10^3/ul RBC 3.26 L (4.0-5.4) 10^6/ul Hgb 9.0 L (12.0-16.0) g/dl Hct 28 L (35-47) % MCV 85 (80-97) fL MCH 28 (27-31) pg MCHC 33 (31-36) g/dl RDW 17 H (10.5-15) % Plt Count (150-450) 10^3/ul MPV (7.4-10.4) um3 Immature Gran % (Auto) 11 H (0-9) % Absolute Neuts (auto) 13.0 H (1.5-7.7) 10^3/ul Absolute Lymphs (auto) 0.3 L (1.0-4.8) 10^3/ul Absolute Monos (auto) 0 (0-0.8) 10^3/ul Absolute Eos (auto) 0 (0-0.6) 10^3/ul Absolute Basos (auto) 0 (0-0.2) 10^3/ul Absolute Nucleated RBC 0 10^3/ul Neutrophils % 87 H (38-83) % Band Neutrophils % 11 H (0-8) % Lymphocytes % 2 L (25-47) % Normal RBC Morphology Normal (Normal) INR (Anticoag Therapy) 1.14 H (0.89-1.11) Sodium 136 (133-145) mmol/L Potassium 3.7 (3.5-5.0) mmol/L Chloride 102 (101-111) mmol/L Carbon Dioxide 24 (22-32) mmol/L Anion Gap 10 (2-11) mmol/L BUN 10 (6-24) mg/dL Creatinine 0.81 (0.51-0.95) mg/dL Est GFR ( Amer) 99.7 (>60) Est GFR (Non-Af Amer) 77.5 (>60) BUN/Creatinine Ratio 12.3 (8-20) Glucose 76 (70-100) mg/dL Lactic Acid (0.5-2.0) mmol/L Calcium 8.0 L (8.6-10.3) mg/dL Total Bilirubin 0.50 (0.2-1.0) mg/dL AST 12 L (13-39) U/L ALT 12 (7-52) U/L Alkaline Phosphatase 115 H (34-104) U/L Troponin I 0.22 H* (<0.04) ng/mL Total Protein 5.8 L (6.4-8.9) g/dL Albumin 2.5 L (3.2-5.2) g/dL Globulin 3.3 (2-4) g/dL Albumin/Globulin Ratio 0.8 L (1-3) Urine Color Urine Appearance Urine pH (5-9) Ur Specific [place]ne (1.010-1.030) Urine Protein (Negative) Urine Ketones (Negative) Urine Blood (Negative) Urine Nitrate (Negative) Urine Bilirubin (Negative) Urine Urobilinogen (Negative) Ur Leukocyte Esterase (Negative) Urine WBC (Auto) (Absent) Urine RBC (Auto) (Absent) Ur Squamous Epith Cells (Absent) Urine Bacteria (Absent) Urine Glucose (Negative) Urine Ascorbic Acid (Negative) 10/06/16 10/06/16 Range/Units 08:15 09:11 WBC (3.5-10.8) 10^3/ul RBC (4.0-5.4) 10^6/ul Hgb (12.0-16.0) g/dl Hct (35-47) % MCV (80-97) fL MCH (27-31) pg MCHC (31-36) g/dl RDW (10.5-15) % Plt Count (150-450) 10^3/ul MPV (7.4-10.4) um3 Immature Gran % (Auto) (0-9) % Absolute Neuts (auto) (1.5-7.7) 10^3/ul Absolute Lymphs (auto) (1.0-4.8) 10^3/ul Absolute Monos (auto) (0-0.8) 10^3/ul Absolute Eos (auto) (0-0.6) 10^3/ul Absolute Basos (auto) (0-0.2) 10^3/ul Absolute Nucleated RBC 10^3/ul Neutrophils % (38-83) % Band Neutrophils % (0-8) % Lymphocytes % (25-47) % Normal RBC Morphology (Normal) INR (Anticoag Therapy) (0.89-1.11) Sodium (133-145) mmol/L Potassium (3.5-5.0) mmol/L Chloride (101-111) mmol/L Carbon Dioxide (22-32) mmol/L Anion Gap (2-11) mmol/L BUN (6-24) mg/dL Creatinine (0.51-0.95) mg/dL Est GFR ( Amer) (>60) Est GFR (Non-Af Amer) (>60) BUN/Creatinine Ratio (8-20) Glucose (70-100) mg/dL Lactic Acid 1.6 (0.5-2.0) mmol/L Calcium (8.6-10.3) mg/dL Total Bilirubin (0.2-1.0) mg/dL AST (13-39) U/L ALT (7-52) U/L Alkaline Phosphatase (34-104) U/L Troponin I (<0.04) ng/mL Total Protein (6.4-8.9) g/dL Albumin (3.2-5.2) g/dL Globulin (2-4) g/dL Albumin/Globulin Ratio (1-3) Urine Color Yellow Urine Appearance Cloudy Urine pH 5.0 (5-9) Ur Specific [place]ne 1.012 (1.010-1.030) Urine Protein 1+(30 mg/dl) H (Negative) Urine Ketones Negative (Negative) Urine Blood 3+ H (Negative) Urine Nitrate Positive H (Negative) Urine Bilirubin Negative (Negative) Urine Urobilinogen Negative (Negative) Ur Leukocyte Esterase 3+ H (Negative) Urine WBC (Auto) 3+(>20/hpf) H (Absent) Urine RBC (Auto) 3+(>10/hpf) H (Absent) Ur Squamous Epith Cells Present H (Absent) Urine Bacteria 1+ H (Absent) Urine Glucose Negative (Negative) Urine Ascorbic Acid * H (Negative) Result Diagrams: 10/07/16 05:30 10/07/16 05:30 Lab Statement: Any lab studies that have been ordered have been reviewed, and results considered in the medical decision making process. - Radiology CXR Radiology Interpretation Completed By: Radiologist - IMPRESSION: Hypoventilated exam with subsegmental atelectasis. No compelling evidence for pneumonia. Abdominal Pain Fem Course/Dx - Course Course Of Treatment: Ms. Youngblood presented post-op with tachycardia and a leukocytosis. She was treated with fluids and antibiotics and her troponin returned a bit elevated. I was concerned for a demand ischemia as well as PE and she was admitted to the hospitalist service. - Diagnoses Provider Diagnoses: elevated troponin, Sepsis - Provider Notifications Discussed Care Of Patient With: Dr. Le (Hospitalist) @ 1768. Discussed pt's case. Will admit. - Critical Care Time Critical Care Time: 30-74 min Discharge - Discharge Plan Condition: Stable Disposition: ADMITTED TO [facility] The documentation as recorded by the Ledy smith Salem accurately reflects the service I personally performed and the decisions made by me, Harris Hernandez MD.
== END 2016-10-07 12:58 | disposition home or self-care (01) ==
LOC: ED 07:11 → INTOOBSV 10:56 → MEDTELE 10:56
PROVIDERS: ADMIT Internal Medicine; ATTEND Hospitalist
DX: A41.51 Sepsis due to Escherichia coli [E. coli] (principal); N39.0 Urinary tract infection, site not specified; R65.20 Severe sepsis without septic shock; E86.0 Dehydration; R74.8 Abnormal levels of other serum enzymes; I51.9 Heart disease, unspecified; E66.01 Morbid (severe) obesity due to excess calories; L03.311 Cellulitis of abdominal wall; R11.2 Nausea with vomiting, unspecified; I51.7 Cardiomegaly; J45.909 Unspecified asthma, uncomplicated; Z79.899 Other long term (current) drug therapy; Z88.1 Allergy status to other antibiotic agents; Z88.8 Allergy status to other drugs, medicaments and biological substances
CPT/HCPCS: 36415; 71010; 71275; 78582; 80048; 80053; 81003; 81015; 83605; 84484; 85025; 85610; 87040; 87077; 87086; 87186; 93005; 93306; 96361; 96372; 96374; 96375; 99291; A9270-GY; A9540; A9558; C8929; G0378; J0696; J1650; J2405; Q9967

== ENCOUNTER 2017-05-16 18:37 | Emergency (ER) | payer BC, MEDICAID ==
[2017-05-16] MEDS ORDERED: NS 0.9% 1000 ML* 1,000 ML IV ONE (22:20)
[2017-05-16] MEDS ORDERED: Ondansetron INJ* 2 MG/ML VIAL IV ONE (22:20)
[2017-05-16 22:44] LABS: Hematocrit 39 % (35-47); Hemoglobin 13.3 g/dl (12.0-16.0); Mean Corpuscular HGB Conc 34 g/dl (31-36); Mean Corpuscular Hemoglobin 30 pg (27-31); Mean Corpuscular Volume 87 fL (80-97); Mean Platelet Volume 9 um3 (7.4-10.4); Red Blood Count 4.49 10^6/ul (4.0-5.4); Red Cell Distribution Width 15 % (10.5-15); White Blood Count 13.3 10^3/ul (3.5-10.8)
[2017-05-16 22:59] LABS: ALT 19 U/L (7-52); AST 16 U/L (13-39); Albumin 3.9 g/dL (3.2-5.2); Alkaline Phosphatase 56 U/L (34-104); Anion Gap 7 mmol/L (2-11); BUN/Creatinine Ratio 15.2 (8-20); Blood Urea Nitrogen 14 mg/dL (6-24); C Reactive Protein 25.31 mg/L (< 5.00); CO2 Carbon Dioxide 27 mmol/L (22-32); Calcium 8.9 mg/dL (8.6-10.3); Chloride 100 mmol/L (101-111); EGFR African American 85.7 (>60); EGFR Non-African American 66.6 (>60); Globulin 3.3 g/dL (2-4); Glucose 95 mg/dL (70-100); Lipase 18 U/L (11.0-82.0); Potassium 3.4 mmol/L (3.5-5.0); Sodium 134 mmol/L (133-145); Total Protein 7.2 g/dL (6.4-8.9)
[2017-05-16] MEDS ORDERED: Ketorolac INJ* 30 MG/ML 1 ML VIAL IV PUSH ONE (23:38)
--- NOTE | 2017-05-16 23:42 | ED ---
Abdominal Pain/Female - HPI Summary HPI Summary: 41 female presents to ED with complaints of RLQ abdominal pain and nausea that began this morning and has not stopped since. Patient states it is a dull ache that is sharp with movement, riding in the car, taking deep breaths. Does not radiate. Patient states she has not taken any medication for the pain. Denies vomiting, constipation, fever/chills and diarrhea. LBM was this morning and normal without blood. No urinary or genitalia symptoms. Admits to having previous in September. NO other abdominal surgeries. NO medications and no PMHx other than arthritis and HTN. Patient denies vaginal bleeding. LMP was March 19. Has taken multiple tests along with at PCP urine test that have all been negative. Her and significant other are trying to get . No history. Has never had pain like this before. No associated with food. - History of Current Complaint Chief Complaint: EDAbdPain Stated Complaint: NAUSEA/ABD PAIN Time Seen by Provider: 05/16/17 22:10 Hx Obtained From: Patient Hx Last Menstrual Period: march 19 2017 ?: No Onset/Duration: Sudden Onset, Lasting Hours, Still Present, Worse Since Timing: Constant Severity Initially: Moderate Severity Currently: Moderate Pain Intensity: 6 Pain Scale Used: 0-10 Numeric Location: Discrete At: RLQ Radiates: No Character: Sharp, Dull Aggravating Factor(s): Movement, Deep Breaths Alleviating Factor(s): Nothing Associated Signs and Symptoms: Positive: Decreased Appetite, Nausea. Negative: Fever, Back Pain, Constipation, Blood in Stool, Urinary Symptoms, Vaginal Bleeding, Vaginal Discharge, Vomiting, Diarrhea Allergies/Adverse Reactions: Allergies Allergy/AdvReac Type Severity Reaction Status Date / Time Amoxicillin [From Augmentin] AdvReac GI Verified 05/16/17 18:41 Clavulanic Acid AdvReac GI Verified 05/16/17 18:41 [From Augmentin] PMH/Surg Hx/FS Hx/Imm Hx Endocrine/Hematology History: Denies: Hx Diabetes Cardiovascular History: Reports: Hx Hypertension Denies: Hx Angina, Hx Coronary Artery Disease, Hx Hypercholesterolemia, Hx Myocardial Infarction, Hx Valvular Heart Disease Respiratory History: Reports: Hx Asthma Musculoskeletal History: Reports: Hx Arthritis - Surgical History Surgery Procedure, Year, and Place: 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 , Other - Hypoglycemic. Family History: Per EMR from November 2014, negative htn/dm/cardiac - Social History Alcohol Use: None Hx Substance Use: No Substance Use Type: Reports: None Hx Tobacco Use: No Smoking Status (MU): Never Smoked Tobacco Have You Smoked in the Last Year: No Review of Systems Constitutional: Negative Cardiovascular: Negative Respiratory: Negative Positive: Abdominal Pain, Nausea Genitourinary: Negative Neurological: Negative All Other Systems Reviewed And Are Negative: Yes Physical Exam Triage Information Reviewed: Yes Vital Signs On Initial Exam: Initial Vitals Temp Pulse Resp BP Pulse Ox 97.5 F 80 20 146/57 100 05/16/17 18:40 05/16/17 18:40 05/16/17 18:40 05/16/17 18:40 05/16/17 18:40 Vital Signs Reviewed: Yes Appearance: Positive: Well-Appearing, No Pain Distress, Well-Nourished Skin: Positive: Warm, Skin Color Reflects Adequate Perfusion, Dry. Negative: Cold, Numb, Tender, Diaphoretic, Jaundiced, Pale, Erythema @ Head/Face: Positive: Normal Head/Face Inspection Eyes: Positive: Conjunctiva Clear ENT: Positive: Hearing grossly normal Neck: Positive: Supple, Nontender, No Lymphadenopathy Respiratory/Lung Sounds: Positive: Clear to Auscultation, Breath Sounds Present. Negative: Rales, Rhonchi, Wheezes Cardiovascular: Positive: Normal, RRR, Pulses are Symmetrical in both Upper and Lower Extremities. Negative: Murmur, Rub Abdomen Description: Positive: No Organomegaly, Soft, Guarding, McBurney's Point Tenderness, Other: - tender on palpation of RLQ and RUQ(causing pain into RLQ). Negative: Bruit, CVA Tenderness (R), CVA Tenderness (L), Distended, Peritoneal Signs, Pulsatile Mass Bowel Sounds: Positive: Present Pelvic Exam: Positive: external exam normal - per patient, refused pelvic Musculoskeletal: Positive: Normal, Strength/ROM Intact Neurological: Positive: Normal, Sensory/Motor Intact, Alert, Oriented to Person Place, Time, CN Intact II-III, Reflexes Intact, Normal Gait Psychiatric: Positive: Normal - [place] Coma Scale Coma Scale Total: 15 Diagnostics - Vital Signs Vital Signs Temp Pulse Resp BP Pulse Ox 05/16/17 20:40 98.5 F 71 16 123/59 100 05/16/17 18:40 97.5 F 80 20 146/57 100 - Laboratory Lab Results: Lab Results 05/16/17 05/16/17 05/16/17 Range/Units 22:30 22:30 22:30 WBC 13.3 H (3.5-10.8) 10^3/ul RBC 4.49 (4.0-5.4) 10^6/ul Hgb 13.3 (12.0-16.0) g/dl Hct 39 (35-47) % MCV 87 (80-97) fL MCH 30 (27-31) pg MCHC 34 (31-36) g/dl RDW 15 (10.5-15) % Plt Count 262 (150-450) 10^3/ul MPV 9 (7.4-10.4) um3 Neut % (Auto) 70.0 (38-83) % Lymph % (Auto) 22.2 L (25-47) % [place] % (Auto) 6.5 (1-9) % Eos % (Auto) 0.4 (0-6) % Baso % (Auto) 0.9 (0-2) % Absolute Neuts (auto) 9.3 H (1.5-7.7) 10^3/ul Absolute Lymphs (auto) 3.0 (1.0-4.8) 10^3/ul Absolute Monos (auto) 0.9 H (0-0.8) 10^3/ul Absolute Eos (auto) 0.1 (0-0.6) 10^3/ul Absolute Basos (auto) 0.1 (0-0.2) 10^3/ul Absolute Nucleated RBC 0.01 10^3/ul Nucleated RBC % 0.1 Sodium 134 (133-145) mmol/L Potassium 3.4 L (3.5-5.0) mmol/L Chloride 100 L (101-111) mmol/L Carbon Dioxide 27 (22-32) mmol/L Anion Gap 7 (2-11) mmol/L BUN 14 (6-24) mg/dL Creatinine 0.92 (0.51-0.95) mg/dL Est GFR ( Amer) 85.7 (>60) Est GFR (Non-Af Amer) 66.6 (>60) BUN/Creatinine Ratio 15.2 (8-20) Glucose 95 (70-100) mg/dL Lactic Acid 1.4 (0.5-2.0) mmol/L Calcium 8.9 (8.6-10.3) mg/dL Total Bilirubin 0.40 (0.2-1.0) mg/dL AST 16 (13-39) U/L ALT 19 (7-52) U/L Alkaline Phosphatase 56 (34-104) U/L C-Reactive Protein 25.31 H (< 5.00) mg/L Total Protein 7.2 (6.4-8.9) g/dL Albumin 3.9 (3.2-5.2) g/dL Globulin 3.3 (2-4) g/dL Albumin/Globulin Ratio 1.2 (1-3) Lipase 18 (11.0-82.0) U/L Beta HCG, Quant < 0.60 mIU/mL Result Diagrams: 05/16/17 22:30 05/16/17 22:30 Lab Statement: Any lab studies that have been ordered have been reviewed, and results considered in the medical decision making process. - CT abd/pelvis CT Interpretation: No Acute Changes - normal appendix. no bowel obstruction. negative diverticulitis. normal kidney, urinary tract and bladder prominent liver, normal splee, normal gallbladder, normal adrenal glands, overall no acute abnormalities, degenerative changes lumbar spine - Ultrasound No standard instances Ultrasound Interpretation: Positive (See Comments) - normal endometrial complex within normal thickness of 5.5mm.However there is some fluid in the endocervical canal, uncertain etiology. Normal left ovary with positive doppler blood flow. there is a 1.4cm x right ovarian cyst which may be complex. The remainder of the right ovary appears normal with positive doppler blood flow. please note that the scan was limited and difficult because of obesity. Ultrasound Interpretation Completed By: Radiologist Re-Evaluation - Re-Evaluation First Eval Re-Evaluation Time: 02:34 Change: Improved - better after toradol and zofran. updated on current plan and lab/US results. Abdominal Pain Fem Course/Dx - Course Course Of Treatment: labs obtained, elevated WBC and CRP. Negative HCG. Given fluids, zofran and toradol to help with pain and nausea. Patient had significant relief. CT and transvaginal US obtained. transvaginal US did show small possibly complex cyst right ovary possible etiolgy of symptoms. refused pelvic. patient was comfortable without complaints at this time. CT negative for acute findings. Probable etiology of pain, ovarian cyst. Will be treated for UTI. NO other complaints. Follow up OBGYN. Patient understands and agress. NO other emergent etiology at this time. Bactrim and naproxen for ovarian cyst pain. Aware of worsening signs and symptoms to watch out for. - Diagnoses Differential Diagnosis: Positive: Appendicitis, Irritable Bowel Syndrome, , Urinary Tract Infection, Other - abdominal pain Provider Diagnoses: Abdominal pain, RLQ, Ovarian cyst, right, UTI (urinary tract infection) Discharge - Discharge Plan Condition: Stable Disposition: HOME Prescriptions: Naproxen TAB* [Naprosyn 375 mg TAB*] 375 mg PO Q8H PRN #10 tab PRN Reason: Pain Sulfamethox/Trimethoprim DS* [Bactrim DS 800/160 TAB*] 1 tab PO BID #9 tab Patient Education Materials: Ovarian Cyst (ED), Urinary Tract Infection in Women (ED), Abdominal Pain (ED) Referrals: Bandar Camejo MD [Medical Doctor] - Marciano Rojo MD [Primary Care Provider] - Additional Instructions: Take prescribed antibiotic as directed to treat UTI. IF medication needs to be changed you will here in a few days. Drink plenty of fluids. Naproxen for pain, for ovarian cyst. Any new or worsening symptoms please seek medical attention immediately. Follow up with OBGYN within 7 days for follow up.
[2017-05-17] MEDS ORDERED: Iohexol 300* (CONTRAST) 10 ML SDV IV ONE (00:42)
[2017-05-17 02:54] VITALS: BP 125/52
[2017-05-17 02:57] LABS: Urine Bacteria Absent (Absent); Urine Bilirubin Negative (Negative); Urine Glucose Negative (Negative); Urine Nitrite Positive (Negative)
[2017-05-17] MEDS ORDERED: Sulfamethox/Trimethoprim DS 800/160* TAB PO ONE (03:00)
--- NOTE | 2017-05-17 07:58 | RAD ---
Indication: RIGHT lower quadrant pain. Concern for ovarian cyst. Comparison: CT of the same date Technique: Transvaginal pelvic ultrasound. Report: Morbid obesity limits acoustic window. 8.2 x 8.9 x 5.2 cm anteverted uterus is heterogeneous in echotexture suggesting presence of small fibroids. 5.5 mm endometrium. Trace fluid in the endocervical canal. Physiologic range trace fluid in the cul-de-sac. 3.4 x 1.9 x 2.6 cm RIGHT ovary with documented vascular flow is remarkable for a unilocular 1.4 x 1.3 x 2.1 cm largely anechoic structure devoid of intrinsic vascularity most consistent with a follicular cyst. 2.9 x 2.3 x 2.1 cm LEFT ovary with documented vascular flow is unremarkable. No visualized extra ovarian adnexal region lesions. IMPRESSION: 1. Heterogeneous echogenicity uterus likely reflecting presence of small fibroids. There are no measurable lesions. Normal thickness endometrium. 2. 2.1 cm probable follicular cyst of the RIGHT ovary.
--- NOTE | 2017-05-17 08:14 | RAD ---
INDICATION: Right lower quadrant abdominal pain. COMPARISON: There are no prior studies available for comparison. TECHNIQUE: A CT scan of the abdomen and pelvis was performed with intravenous and oral contrast following intravenous injection of 150 ml of Omnipaque 300 nonionic contrast. Contiguous axial sections were obtained from the lung bases through the symphysis pubis. Images were reconstructed in the coronal and sagittal planes. The exam is limited due to the patient's body habitus. FINDINGS: The lung bases are clear. No pleural effusion is present. The liver and spleen are mildly enlarged. The liver is decreased in attenuation consistent with fatty infiltration. No calcified gallstones are seen. The pancreas appears to be within normal limits. The kidneys and adrenal glands are normal in size. No hydronephrosis is seen. No significant focal renal abnormality is seen. The aorta is normal in caliber and demonstrates homogeneous contrast opacification. There are mildly prominent lymph nodes in the retroperitoneum in the left periaortic region. No significant enlarged lymph nodes are seen by size criteria. The stomach, small and large bowel appear nondistended. The appendix is within normal limits. There is mild sigmoid diverticulosis. There is no evidence for diverticulitis or colitis. There is a small periumbilical hernia containing nondistended small bowel. The uterus is anteverted and normal in size. There is a small 2.4 x 1.6 cm left ovarian cyst. No free intraperitoneal air or fluid is seen. No significant focal osseous abnormality is seen. IMPRESSION: 1. NO EVIDENCE FOR ACUTE FINDING OR CAUSE FOR THE PATIENT'S ABDOMINAL PAIN. 2. MILD HEPATOSPLENOMEGALY AND HEPATIC STEATOSIS. 3. SMALL PERIUMBILICAL HERNIA CONTAINING NONDISTENDED SMALL BOWEL.
--- NOTE | 2017-05-18 15:54 | PN ---
Progress Note - Progress Note Date of Service: 05/18/17 Note: Patient placed on bactrim which final culture shows is resistant to. urine culture grew E coli >100,000. spoke with patient and will switch to macrobid 100mg bid x7 days
== END 2017-05-17 03:16 | disposition home or self-care (01) ==
LOC: ED 18:37
DX: R10.31 Right lower quadrant pain (principal); N83.01 Follicular cyst of right ovary; N39.0 Urinary tract infection, site not specified; B96.20 Unspecified Escherichia coli [E. coli] as the cause of diseases classified elsewhere; R11.0 Nausea; Z32.02 Encounter for pregnancy test, result negative; I10 Essential (primary) hypertension; J45.909 Unspecified asthma, uncomplicated; Z88.1 Allergy status to other antibiotic agents
CPT/HCPCS: 36415; 74177; 76830; 80053; 81003; 81015; 83605; 83690; 84702; 85025; 86140; 87077; 87086; 87186; 96361; 96374; 96375; 99283; A9270-GY; J1885; J2405; Q9967

== ENCOUNTER 2017-11-07 19:05 | Emergency (ER) | payer BC, MEDICAID ==
[2017-11-07] MEDS ORDERED: Metoclopramide IV* 5 MG/ML 2 ML VIAL IV SLOW PU ONE (19:50)
[2017-11-07] MEDS ORDERED: NS 0.9% 1000 ML* 1,000 ML IV ONE (19:51)
[2017-11-07 20:38] LABS: ABS Basophils 0 10^3/ul (0-0.2); ABS Eosinophils 0 10^3/ul (0-0.6); ABS Lymphocytes 0.6 10^3/ul (1.0-4.8); ABS Monocytes 0.5 10^3/ul (0-0.8); ABS Neutrophils 11.3 10^3/ul (1.5-7.7); ABS Nucleated RBC 0 10^3/ul; Eosinophil % 0.2 % (0-6); Hematocrit 38 % (35-47); Hemoglobin 12.5 g/dl (12.0-16.0); Lymphocyte % 4.8 % (25-47); Mean Corpuscular HGB Conc 33 g/dl (31-36); Mean Corpuscular Hemoglobin 29 pg (27-31); Mean Corpuscular Volume 86 fL (80-97); Mean Platelet Volume 9.2 um3 (7.4-10.4); Nucleated Red Blood Cells % 0; Platelet Count 256 10^3/ul (150-450); Red Blood Count 4.36 10^6/ul (4.0-5.4); Red Cell Distribution Width 15 % (10.5-15); White Blood Count 12.5 10^3/ul (3.5-10.8)
--- NOTE | 2017-11-07 22:19 | ED ---
Sean Cristobal Stephanie, scribed for Gerry Dinh MD on 11/07/17 at 1946 . GI/ HPI - HPI Summary HPI Summary: This pt is a 42 y/o F presenting to the ED with c/o vomiting since 11:00 today. Symptoms include muscle spasms and chills. The pt denies fever, diarrhea, nausea and abd pain prior to vomiting. She states she has no idea when she is going to vomit. She states she usually vomits when she has cellulitis. - History of Current Complaint Chief Complaint: EDNauseaVomitDiarrh Time Seen by Provider: 11/07/17 19:25 Stated Complaint: VOMITING Hx Obtained From: Patient Hx Last Menstrual Period: march 19 2017 Onset/Duration: Started Hours Ago - 8, Still Present Timing: Intermittent Current Severity: Mild Pain Intensity: 5 Location of Pain: None Associated Signs and Symptoms: Positive: Vomiting, Chills, Other: - muscle spasms. Negative: Nausea, Diarrhea, Fever, Abdominal Pain Aggravating Factor(s): Nothing Alleviating Factor(s): Nothing - Additional Pertinent History Primary Care Physician: [id number] - Allergy/Home Medications Allergies/Adverse Reactions: Allergies Allergy/AdvReac Type Severity Reaction Status Date / Time amoxicillin [From Augmentin] AdvReac Mild GI Upset Verified 11/07/17 19:11 clavulanic acid AdvReac Mild GI Upset Verified 11/07/17 19:11 [From Augmentin] Home Medications: Home Medications Acetaminophen TAB* [Tylenol TAB*] 325 mg PO Q4H PRN 11/07/17 [History Confirmed 11/07/17] Albuterol HFA INHALER* [Ventolin HFA Inhaler*] 2 puff INH Q4H PRN 11/07/17 [ History Confirmed 11/07/17] Methyldopa TAB* [Aldomet TAB*] 500 mg PO TID 11/07/17 [History Confirmed ] Pnv,Calcium 72/Iron/Folic Acid [Preplus Ca-Fe 27 mg-FA 1 mg Tb] 1 tab PO DAILY 11/07/17 [History Confirmed 11/07/17] PMH/Surg Hx/FS Hx/Imm Hx Endocrine/Hematology History: Denies: Hx Diabetes Cardiovascular History: Reports: Hx Hypertension Denies: Hx Angina, Hx Coronary Artery Disease, Hx Hypercholesterolemia, Hx Myocardial Infarction, Hx Valvular Heart Disease Respiratory History: Reports: Hx Asthma History: Denies: Hx Renal Disease Musculoskeletal History: Reports: Hx Arthritis EENT History: Denies: Hx Deafness - Surgical History Surgery Procedure, Year, and Place: 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 , Other - Hypoglycemic. Family History: Per EMR from November 2014, negative htn/dm/cardiac - Social History Occupation: Unemployed Lives: With Family Alcohol Use: None Hx Substance Use: No Substance Use Type: Reports: None Hx Tobacco Use: No Smoking Status (MU): Never Smoked Tobacco Have You Smoked in the Last Year: No Review of Systems Positive: Chills. Negative: Fever Positive: Vomiting. Negative: Abdominal Pain - prioir to vomiting, Diarrhea, Nausea Positive: Other - muscle spasms Negative: Slurred Speech All Other Systems Reviewed And Are Negative: Yes Physical Exam - Summary Physical Exam Summary: VITAL SIGNS: Reviewed. GENERAL: Patient is a morbidly obese FEMALE who is lying comfortable in the stretcher. Patient is not in any acute respiratory distress. HEAD AND FACE: No signs of trauma. No ecchymosis, hematomas or skull depressions. No sinus tenderness. EYES: PERRLA, EOMI x 2, No injected conjunctiva, no nystagmus. EARS: Hearing grossly intact. Ear canals and tympanic membranes are within normal limits. MOUTH: Oropharynx within normal limits. NECK: Supple, trachea is midline, no adenopathy, no JVD, no carotid bruit, no c- spine tenderness, neck with full ROM. CHEST: Symmetric, no tenderness at palpation LUNGS: Clear to auscultation bilaterally. No wheezing or crackles. CVS: Regular rate and rhythm, S1 and S2 present, no murmurs or gallops appreciated. ABDOMEN: Soft, non-tender. No signs of distention. No rebound no guarding, and no masses palpated. Bowel sounds are normal. EXTREMITIES: FROM in all major joints, no edema, no cyanosis or clubbing. NEURO: Alert and oriented x 3. No acute neurological deficits. Speech is normal and follows commands. SKIN: Dry and warm, bilateral LE chronic skin changes Triage Information Reviewed: Yes Vital Signs On Initial Exam: Initial Vitals Temp Pulse Resp BP Pulse Ox 98.3 F 108 22 114/56 96 11/07/17 19:08 11/07/17 19:08 11/07/17 19:08 11/07/17 19:08 11/07/17 19:08 Vital Signs Reviewed: Yes Diagnostics - Vital Signs Vital Signs Temp Pulse Resp BP Pulse Ox 11/07/17 19:08 98.3 F 108 22 114/56 96 - Laboratory Result Diagrams: 11/07/17 20:20 11/07/17 20:20 Lab Statement: Any lab studies that have been ordered have been reviewed, and results considered in the medical decision making process. Re-Evaluation - Re-Evaluation First Eval Re-Evaluation Time: 21:26 Change: Improved - The pt feels better. GIGU Course/Dx - Course Course Of Treatment: This pt is a 42 y/o F presenting to the ED with c/o vomiting since 11:00 today. Symptoms include muscle spasms and chills. The pt denies fever, diarrhea, nausea and abd pain prior to vomiting. She states she has no idea when she is going to vomit. She states she usually vomits when she has cellulitis. Labs unremarkable. D/C home with gastritis. - Diagnoses Provider Diagnoses: Vomiting, Gastritis Discharge - Sign-Out/Discharge Documenting (check all that apply): Discharge - Discharge Plan Condition: Stable Disposition: HOME Prescriptions: Metoclopramide TAB* [Reglan TAB*] 10 mg PO Q6H PRN #20 tab PRN Reason: Nausea/Vomiting Pantoprazole TAB (NF) [Protonix TAB (NF)] 40 mg PO DAILY #30 tab Patient Education Materials: Gastritis (ED) Referrals: Marciano Rojo MD [Primary Care Provider] - 2 Days Additional Instructions: RETURN TO EMERGENCY DEPARTMENT FOR ANY NEW OR WORSENING SYMPTOMS The documentation as recorded by the Sean smith Stephanie accurately reflects the service I personally performed and the decisions made by me, Gerry Dinh MD.
[2017-11-07 22:28] VITALS: BP 120/61
== END 2017-11-07 22:26 | disposition home or self-care (01) ==
LOC: ED 19:05
DX: K29.70 Gastritis, unspecified, without bleeding (principal); R11.10 Vomiting, unspecified; I10 Essential (primary) hypertension; J45.909 Unspecified asthma, uncomplicated
CPT/HCPCS: 36415; 80053; 82150; 83690; 84702; 85025; 96360; 96365; 99284; J2765

== ENCOUNTER → 2018-01-25 18:30 | Emergency (ER) | payer BC, MEDICAID ==
[~2018-01-25 18:30] MED LIST: Morphine VIAL* 4 MG/ML VIAL (1 ml vial) IV ONE; NS 0.9% 1000 ML* 1,000 ML IV ONE; cefTRIAXone(*) 1 GM in NS 0.9% 50 ML* 50 ML IVPB ONE
[2018-01-25 19:53] LABS: ABS Basophils 0 10^3/ul (0-0.2); ABS Eosinophils 0 10^3/ul (0-0.6); ABS Lymphocytes 1.3 10^3/ul (1.0-4.8); ABS Monocytes 0.9 10^3/ul (0-0.8); ABS Neutrophils 13.1 10^3/ul (1.5-7.7); ABS Nucleated RBC 0 10^3/ul; Eosinophil % 0.1 % (0-6); Hematocrit 39 % (35-47); Lymphocyte % 8.4 % (25-47); Mean Corpuscular HGB Conc 34 g/dl (31-36); Mean Corpuscular Hemoglobin 29 pg (27-31); Mean Corpuscular Volume 86 fL (80-97); Mean Platelet Volume 9.1 um3 (7.4-10.4); Nucleated Red Blood Cells % 0; Platelet Count 241 10^3/ul (150-450); Red Blood Count 4.53 10^6/ul (4.00-5.40); Red Cell Distribution Width 16 % (10.5-15); White Blood Count 15.3 10^3/ul (3.5-10.8)
[2018-01-25 20:00] LABS: INR 1.21 (0.77-1.02)
[2018-01-25 20:13] LABS: EGFR Non-African American 66.3 (>60)
[2018-01-25 21:37] LABS: Urine Appearance Cloudy; Urine Blood 3+ (Negative); Urine Color Amber; Urine Ketones 1+ (Negative); Urine Protein 2+(100 mg/dL) (Negative); Urine Specific Gravity 1.019 (1.010-1.030); Urine Urobilinogen Positive (Negative)
--- NOTE | 2018-01-25 21:38 | ED ---
Abdominal Pain/Female - HPI Summary HPI Summary: Patient is a 42-year-old female who presents emergency department for lower abdominal pain times several days. Pain is worse with movement and is sharp in nature. Patient describes pain around the umbilicus and radiates to right lower quadrant. Denies associated symptoms of nausea, vomiting, diarrhea, constipation, urinary symptoms, vaginal discharge. Currently finishing menstrual cycle. Symptoms are moderate in severity. Movement makes symptoms worse. Lying flat makes symptoms better. - History of Current Complaint Chief Complaint: EDAbdPain Stated Complaint: ABD PAIN/NAUSEOUS Time Seen by Provider: 01/25/18 21:01 Hx Obtained From: Patient Hx Last Menstrual Period: march 19 2017 Pain Intensity: 8 Allergies/Adverse Reactions: Allergies Allergy/AdvReac Type Severity Reaction Status Date / Time amoxicillin [From Augmentin] AdvReac Mild GI Upset Verified 01/25/18 19:08 clavulanic acid AdvReac Mild GI Upset Verified 01/25/18 19:08 [From Augmentin] PMH/Surg Hx/FS Hx/Imm Hx Previously Healthy: Yes Endocrine/Hematology History: Denies: Hx Diabetes Cardiovascular History: Reports: Hx Hypertension Denies: Hx Angina, Hx Coronary Artery Disease, Hx Hypercholesterolemia, Hx Myocardial Infarction, Hx Valvular Heart Disease Respiratory History: Reports: Hx Asthma History: Denies: Hx Renal Disease Musculoskeletal History: Reports: Hx Arthritis Sensory History: Denies: Hx Deafness - Surgical History Surgery Procedure, Year, and Place: tumor from [facility] 2012--benign - Immunization History Date of Influenza Vaccine: fall 2016 Infectious Disease History: No Infectious Disease History: Denies: Traveled Outside the [place] in Last 30 Days - Family History Known Family History: Positive: None, Diabetes - Both parents. , Other - Hypoglycemic. Family History: Per EMR from November 2014, negative htn/dm/cardiac - Social History Occupation: Unemployed Lives: With Family Alcohol Use: Rare Hx Substance Use: No Substance Use Type: Reports: None Hx Tobacco Use: No Smoking Status (MU): Never Smoked Tobacco Have You Smoked in the Last Year: No Review of Systems Constitutional: Negative Negative: Fever, Chills Eyes: Negative ENT: Negative Cardiovascular: Negative Respiratory: Negative Positive: Abdominal Pain. Negative: Vomiting, Diarrhea, Nausea Genitourinary: Negative Neurological: Negative All Other Systems Reviewed And Are Negative: Yes Physical Exam Triage Information Reviewed: Yes Vital Signs On Initial Exam: Initial Vitals Temp Pulse Resp BP Pulse Ox 100.5 F 128 20 125/64 94 01/25/18 19:05 01/25/18 19:05 01/25/18 19:05 01/25/18 19:05 01/25/18 19:05 Diagnostics - Vital Signs Vital Signs Temp Pulse Resp BP Pulse Ox 01/25/18 19:05 100.5 F 128 20 125/64 94 - Laboratory Lab Results: Lab Results 01/25/18 01/25/18 01/25/18 Range/Units 19:42 19:42 19:42 WBC 15.3 H (3.5-10.8) 10^3/ul RBC 4.53 (4.00-5.40) 10^6/ul Hgb 13.0 (12.0-16.0) g/dl Hct 39 (35-47) % MCV 86 (80-97) fL MCH 29 (27-31) pg MCHC 34 (31-36) g/dl RDW 16 H (10.5-15) % Plt Count 241 (150-450) 10^3/ul MPV 9.1 (7.4-10.4) um3 Neut % (Auto) 85.3 H (38-83) % Lymph % (Auto) 8.4 L (25-47) % Pratt % (Auto) 5.9 (0-7) % Eos % (Auto) 0.1 (0-6) % Baso % (Auto) 0.3 (0-2) % Absolute Neuts (auto) 13.1 H (1.5-7.7) 10^3/ul Absolute Lymphs (auto) 1.3 (1.0-4.8) 10^3/ul Absolute Monos (auto) 0.9 H (0-0.8) 10^3/ul Absolute Eos (auto) 0 (0-0.6) 10^3/ul Absolute Basos (auto) 0 (0-0.2) 10^3/ul Absolute Nucleated RBC 0 10^3/ul Nucleated RBC % 0 INR (Anticoag Therapy) 1.21 H (0.77-1.02) Sodium 135 (135-145) mmol/L Potassium 3.5 (3.5-5.0) mmol/L Chloride 99 L (101-111) mmol/L Carbon Dioxide 25 (22-32) mmol/L Anion Gap 11 (2-11) mmol/L BUN 8 (6-24) mg/dL Creatinine 0.92 (0.51-0.95) mg/dL Est GFR ( Amer) 80.2 (>60) Est GFR (Non-Af Amer) 66.3 (>60) BUN/Creatinine Ratio 8.7 (8-20) Glucose 101 H (70-100) mg/dL Lactic Acid (0.5-2.0) mmol/L Calcium 9.4 (8.6-10.3) mg/dL Total Bilirubin 0.70 (0.2-1.0) mg/dL AST 19 (13-39) U/L ALT 29 (7-52) U/L Alkaline Phosphatase 56 (34-104) U/L Troponin I 0.00 (<0.04) ng/mL C-Reactive Protein 215.01 H (<8.01) mg/L Total Protein 8.0 (6.4-8.9) g/dL Albumin 4.1 (3.2-5.2) g/dL Globulin 3.9 (2-4) g/dL Albumin/Globulin Ratio 1.1 (1-3) Lipase < 10 L (11.0-82.0) U/L Beta HCG, Quant < 0.60 mIU/mL 01/25/18 Range/Units 19:42 WBC (3.5-10.8) 10^3/ul RBC (4.00-5.40) 10^6/ul Hgb (12.0-16.0) g/dl Hct (35-47) % MCV (80-97) fL MCH (27-31) pg MCHC (31-36) g/dl RDW (10.5-15) % Plt Count (150-450) 10^3/ul MPV (7.4-10.4) um3 Neut % (Auto) (38-83) % Lymph % (Auto) (25-47) % Pratt % (Auto) (0-7) % Eos % (Auto) (0-6) % Baso % (Auto) (0-2) % Absolute Neuts (auto) (1.5-7.7) 10^3/ul Absolute Lymphs (auto) (1.0-4.8) 10^3/ul Absolute Monos (auto) (0-0.8) 10^3/ul Absolute Eos (auto) (0-0.6) 10^3/ul Absolute Basos (auto) (0-0.2) 10^3/ul Absolute Nucleated RBC 10^3/ul Nucleated RBC % INR (Anticoag Therapy) (0.77-1.02) Sodium (135-145) mmol/L Potassium (3.5-5.0) mmol/L Chloride (101-111) mmol/L Carbon Dioxide (22-32) mmol/L Anion Gap (2-11) mmol/L BUN (6-24) mg/dL Creatinine (0.51-0.95) mg/dL Est GFR ( Amer) (>60) Est GFR (Non-Af Amer) (>60) BUN/Creatinine Ratio (8-20) Glucose (70-100) mg/dL Lactic Acid 1.2 (0.5-2.0) mmol/L Calcium (8.6-10.3) mg/dL Total Bilirubin (0.2-1.0) mg/dL AST (13-39) U/L ALT (7-52) U/L Alkaline Phosphatase (34-104) U/L Troponin I (<0.04) ng/mL C-Reactive Protein (<8.01) mg/L Total Protein (6.4-8.9) g/dL Albumin (3.2-5.2) g/dL Globulin (2-4) g/dL Albumin/Globulin Ratio (1-3) Lipase (11.0-82.0) U/L Beta HCG, Quant mIU/mL Result Diagrams: 01/25/18 19:42 01/25/18 19:42 Lab Statement: Any lab studies that have been ordered have been reviewed, and results considered in the medical decision making process. Abdominal Pain Fem Course/Dx - Course Course Of Treatment: Pt. presenting to the ER for lower abd. pain. She does have a low grade fever of 100.5F, HR elevated 128, BP 125/64, O2 saturation is 94% on RA. IV fluids ordered. Morphine ordered for pain. Labs were obtained in triage and show a leukocytosis of 15. CMP unremarkable. Urinalysis is nitrate positive with elevated RBCs and WBCs. CT abd/pelvis per radiology: IMPRESSION: THIS IS A LIMITED EXAMINATION PERFORMED WITHOUT ORAL OR INTRAVENOUS CONTRAST. THE PATIENT'S BODY HABITUS LEADS TO FURTHER LIMITATIONS. THERE IS A RIGHT ADNEXAL MASS . DESCRIBED ABOVE FOR WHICH PELVIC ULTRASONOGRAPHY IS RECOMMENDED IN ATTEMPT TO FURTHER. CHARACTERIZE. Will obtain transvaginal U/S for further evaluation of right adnexal mass seen on CT scan. Will give a dose of IV rocephine for suspected UTI. Transvaginal U/S shows a cluster of right ovarian cyst vs a larger cyst, no abscess or torsion, reading per imaging contract administration specialist radiology. On re-exam pt. is resting comfortably. VS have improved. Given Inital VS and elevated WBC offered pt. admission but she would like to try outpt. treatment. Rx for Cipro sent to pharm. Pt. to call her PCP tomorrow for a close apt. To increased fluids. Tylenol or Motrin as directed. To return to ER for high fevers, vomiting, increased pain or if concerned. - Diagnoses Provider Diagnoses: UTI (urinary tract infection) Discharge - Sign-Out/Discharge Documenting (check all that apply): Discharge/Admit/Transfer - Discharge Plan Condition: Good Disposition: HOME Prescriptions: Ciprofloxacin TAB* [Cipro 500 MG TAB*] 500 mg PO BID #20 tab Patient Education Materials: Ovarian Cyst (ED), Urinary Tract Infection in Women (ED) Referrals: Diane Mejia MD [Primary Care Provider] - Additional Instructions: Call PCP tomorrow for a close follow up appointment with PCP Take antibiotic as directed Increase fluids Tylenol or Motrin for pain and fever as directed Return to ER for increased pain, vomiting or if concerned - Billing Disposition and Condition Condition: GOOD Disposition: Home
--- NOTE | 2018-01-25 22:07 | RAD ---
INDICATION: Abdominal pain COMPARISON: CT abdomen pelvis May 17, 2017 TECHNIQUE: Noncontrast axial source images were obtained from the hemidiaphragms to the symphysis pubis. This examination was ordered using a renal stone protocol which is performed without oral or intravenous contrast and therefore has inherent limitations when used to evaluate other intra-abdominal or intrapelvic pathology. Consider conventional contrast enhanced imaging if clinically indicated. Lung bases: The lung bases are clear. Liver: The liver is enlarged with findings of hepatic steatosis. Noncontrast imaging shows no evidence of a hepatic mass or ductal dilatation. Gallbladder: There are no calcified gallstones. There is no evidence of wall thickening or pericholecystic fluid.. Spleen: The spleen is normal in size. The noncontrast CT appearance is normal. Pancreas: Noncontrast imaging shows no pancreatic mass or ductal dilitation. Adrenal glands: No masses are identified. Kidneys/Bladder: There is no convincing evidence of nephrolithiasis or CT evidence of hydronephrosis. Noncontrast imaging shows no evidence of a renal mass. The bladder is unremarkable.. Adenopathy: There is no evidence of intraperitoneal or retroperitoneal adenopathy. Evaluation is limited without oral contrast. Fluid collections: There are no free or localized fluid collections. Vessels: The aorta and iliac vessels are normal in caliber. There are no significant atherosclerotic changes. The IVC appears normal Pelvic organs: The uterus and left adnexa are normal. There is a right adnexal mass measuring approximately 7.0 x 4.5 cm which may be ovarian in origin. There is mild stranding adjacent fat. This could represent a tubo-ovarian abscess or perhaps even a torsed ovary in the appropriate clinical setting. Pelvic ultrasonography is recommended although it is likely to be very limited given the patient's size. GI tract: Evaluation of the bowel is limited without oral contrast. The stomach, small bowel, and lower GI tract appear grossly normal. There are no obstructive findings. The appendix is visualized and appears normal. Soft tissues: There is diastases of the rectus abdominis musculature with a ventral hernia Osseous structures: There are no acute osseous findings. IMPRESSION: THIS IS A LIMITED EXAMINATION PERFORMED WITHOUT ORAL OR INTRAVENOUS CONTRAST. THE PATIENT'S BODY HABITUS LEADS TO FURTHER LIMITATIONS. THERE IS A RIGHT ADNEXAL MASS DESCRIBED ABOVE FOR WHICH PELVIC ULTRASONOGRAPHY IS RECOMMENDED IN ATTEMPT TO FURTHER CHARACTERIZE.
[2018-01-26 01:44] VITALS: BP 108/66
--- NOTE | 2018-01-26 07:26 | RAD ---
INDICATION: Right adnexal mass COMPARISON: CT same date TECHNIQUE: Longitudinal and transverse transvaginal scans of the pelvis were obtained. The examination is limited due to morbid obesity FINDINGS: Uterus: The uterus is normal in size. There are no focal masses. The uterus measures 7.9 x 4.1 x 4.7 cm. Endometrial thickness: The endometrial thickness is measured at 0.3 cm. . Free fluid: There is no significant free fluid . Ovaries: The ovaries are normal in size. The right ovary measures 6.3 x 3.7 x 3.4 cm. The left ovary measures 2.1 x 1.4 x 0.9 cm. There are 3 cysts in the right ovary measuring 2.1 x 1.6 x 2.1, and 0.7 x 1.5 x 1.7, and 1.3 x 1.9 x 1.3 cm. These cysts have low-level echoes and may be septated. There are limitations due to technical factors, however. Suggest 3 month follow-up imaging Doppler interrogation demonstrates flow to each ovary. Other: None IMPRESSION: MULTIPLE RIGHT OVARIAN CYSTS WITHOUT FINDINGS OF TORSION. SUGGEST 3 MONTH FOLLOW-UP IMAGING.
--- NOTE | 2018-01-28 06:38 | PN ---
Progress Note - Progress Note Date of Service: 01/25/18 Note: Urine culture grew Klebsiella pneumonia Patient placed on Cipro prior to discharge We will await sensitivities at this time Leann Richter, PAC
--- NOTE | 2018-01-29 06:43 | PN ---
Progress Note - Progress Note Date of Service: 02/25/18 Note: Patient placed on Cipro prior to discharge. Urine culture preliminary grew Klebsiella pneumoniae Cipro is sensitive to this organism No changes made at this time GABRIELA Emerson
== END | disposition home or self-care (01) ==
LOC: ED 18:30
DX: N39.0 Urinary tract infection, site not specified (principal); R10.30 Lower abdominal pain, unspecified; I10 Essential (primary) hypertension
CPT/HCPCS: 36415; 74176; 76830; 80053; 81003; 81015; 83605; 83690; 84484; 84702; 85025; 85610; 86140; 87040; 87077; 87086; 87186; 93005; 96361; 96374; 99283; J0696; J2270

== ENCOUNTER 2018-02-03 13:55 | Emergency (ER) | payer BC, MEDICAID ==
[2018-02-03] MEDS ORDERED: Ondansetron INJ* 2 MG/ML VIAL IV ONE (15:45)
[2018-02-03] MEDS ORDERED: Morphine VIAL* 4 MG/ML VIAL (1 ml vial) IV ONE ×2 (15:45→19:55)
[2018-02-03 16:17] LABS: ABS Basophils 0.1 10^3/ul (0-0.2); ABS Eosinophils 0 10^3/ul (0-0.6); ABS Lymphocytes 1.2 10^3/ul (1.0-4.8); ABS Nucleated RBC 0 10^3/ul; Eosinophil % 0.1 % (0-6); Hematocrit 37 % (35-47); Hemoglobin 12.1 g/dl (12.0-16.0); Lymphocyte % 5.8 % (25-47); Mean Corpuscular HGB Conc 33 g/dl (31-36); Mean Corpuscular Hemoglobin 28 pg (27-31); Mean Corpuscular Volume 86 fL (80-97); Mean Platelet Volume 8.2 um3 (7.4-10.4); Nucleated Red Blood Cells % 0; Platelet Count 404 10^3/ul (150-450); Red Blood Count 4.31 10^6/ul (4.00-5.40); Red Cell Distribution Width 15 % (10.5-15); White Blood Count 21.4 10^3/ul (3.5-10.8)
[2018-02-03 16:28] LABS: EGFR Non-African American 67.2 (>60)
[2018-02-03] MEDS ORDERED: NS 0.9% 1000 ML* 1,000 ML IV ONE ×2 (16:32→16:59)
[2018-02-03 16:34] LABS: INR 1.24 (0.77-1.02)
[2018-02-03] MEDS ORDERED: metroNIDAZOLE IV 500 MG/100ML* 500 MG/100 ML BAG IVPB ONE (17:00)
[2018-02-03] MEDS ORDERED: Ciprofloxacin 400MG IVPREMIX(* 400 MG/200 ML BAG IVPB ONE (17:00)
[2018-02-03 17:02] LABS: Urine Appearance Clear; Urine Blood Negative (Negative); Urine Color Yellow; Urine Ketones Trace (Negative); Urine Protein Negative (Negative); Urine Specific Gravity 1.008 (1.010-1.030); Urine Urobilinogen Negative (Negative)
--- NOTE | 2018-02-03 17:39 | RAD ---
INDICATION: Right-sided pelvic pain COMPARISON: Most recent comparison ultrasound is dated January 25, 2018 TECHNIQUE: Real-time transabdominal and transvaginal ultrasound examination of the female pelvis including grayscale and Doppler color flow imaging. FINDINGS: Evaluation is limited by the patient's morbid obesity causing sonographic acquisition to be very difficult. Uterus: The uterus is normal in size and echogenicity measuring 9.6 x 3.9 x 5.9 cm. The endometrial stripe is smooth and uniform measuring 11 mm in thickness. Ovaries: The left ovary measures 2.6 x 1.6 x 2.6 cm. There is questionable identification of the right ovary. At the right adnexa there is an avascular structure measuring approximately 6.8 x 5.1 x 5.6 cm. Within the structure there is a cystic portion measuring approximately 2.7 cm in greatest dimension. There is small amount of free fluid in the cul-de-sac. IMPRESSION: In the right adnexa there is an ill-defined avascular structure measuring 6.8 cm in greatest dimension with a cystic portion measuring 2.7 cm in greatest dimension, potentially representing an enlarged ovary. The absence of color flow could be due to ovarian torsion.
[2018-02-03] MEDS ORDERED: Iohexol 300* (CONTRAST) 10 ML SDV IV ONE (17:49)
--- NOTE | 2018-02-03 19:16 | ED ---
Abdominal Pain/Female - HPI Summary HPI Summary: Patient presents with persistent right lower quadrant pain since January 25, 2018. She was seen here on that date and diagnosed with right ovarian cysts along with the UTI. She was treated with antibiotics including ceftriaxone IV here and outpatient antibiotics of Cipro. She's completed these and reports her urinary symptoms have improved however she continues to have right lower quadrant pain. She has not been taking anything for this nor has she tried heat packs or a bath. She had an ultrasound revealing multiple small cysts on the right ovary, the largest dimension measuring 2.4 cm in diameter. No torsion at that time. A CT abdomen and pelvis without by mouth and IV contrast was also ordered and was negative however, by radiologist was that the study was limited without contrast. There is concern today for possible appendicitis or worsening of right ovarian cyst as patient's pain shot up to above a 10 out of 10 this morning associated with nausea. Currently she is at an 8 out of 10. This is the worst her pain is been since it started over 11 days ago. Pain continues to be better with rest/lying flat and worse with movement. She denies vomiting. She's had some loose stools and admits to a 20 pound weight loss since pain started she's not been able to eat due to loss of appetite/pain. She denies history of ovarian cysts or uterine pathology as well as PCL lasts. Her first was unplanned and happened at the age of 42. She admits they were trying for surprise that this happened. Her obstetric care was followed by specialists in [place] due to both her advanced age and weight. She had a without complication however developed urosepsis in days to follow delivery due to an incomplete treatment of UTI during her . She recovered from this well. Baby is also healthy. 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[employer] - , child Hx Last Menstrual Period: march 19 2017 Pain Intensity: 10 Allergies/Adverse Reactions: Allergies Allergy/AdvReac Type Severity Reaction Status Date / Time amoxicillin [From Augmentin] AdvReac Mild GI Upset Verified 01/25/18 19:08 clavulanic acid AdvReac Mild GI Upset Verified 01/25/18 19:08 [From Augmentin] Home Medications: Home Medications Lisinopril [Prinivil TAB 20 mg] 20 mg PO DAILY 02/03/18 [History Confirmed 02/03] Pnv No.95/Ferrous Fum/Folic AC [ Multivitamin Tablet] 1 tab PO DAILY 01/16 [History Confirmed 02/03/18] PMH/Surg Hx/FS Hx/Imm Hx Previously Healthy: Yes Endocrine/Hematology History: Denies: Hx Anticoagulant Therapy, Hx Blood Disorders, Hx Diabetes, Hx Thyroid Disease, Hx Anemia, Hx Unexplained Bleeding, Other Endocrine/ Hematological Disorders - denies PCOS Cardiovascular History: Reports: Hx Hypertension Denies: Hx Angina, Hx Coronary Artery Disease, Hx Hypercholesterolemia, Hx Myocardial Infarction, Hx Valvular Heart Disease Respiratory History: Reports: Hx Asthma History: Reports: Other Problems/Disorders - urosepsis Denies: Hx Renal Disease Musculoskeletal History: Reports: Hx Arthritis Sensory History: Denies: Hx Deafness - Surgical History Surgery Procedure, Year, and Place: 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 C- section 2016 - Immunization History Date of Influenza Vaccine: fall 2016 Infectious Disease History: No Infectious Disease History: Denies: Traveled Outside the [place] in Last 30 Days - Family History Known Family History: Positive: Diabetes - Both parents. , Other - Hypoglycemic. Family History: Per EMR from November 2014, negative htn/dm/cardiac - Social History Lives: With Family Alcohol Use: Rare Hx Substance Use: No Substance Use Type: Reports: None Hx Tobacco Use: No Smoking Status (MU): Never Smoked Tobacco Have You Smoked in the Last Year: No Review of Systems Constitutional: Negative Negative: Fever, Chills, Fatigue Cardiovascular: Negative Negative: Chest Pain Respiratory: Negative Negative: Shortness Of Breath Positive: Abdominal Pain, Nausea. Negative: Vomiting, Diarrhea Positive: see HPI Musculoskeletal: Negative Skin: Negative Neurological: Negative Psychological: Normal All Other Systems Reviewed And Are Negative: Yes Physical Exam Triage Information Reviewed: Yes Vital Signs On Initial Exam: Initial Vitals Temp Pulse Resp BP Pulse Ox 97.4 F 113 22 116/42 96 02/03/18 13:57 02/03/18 13:57 02/03/18 13:57 02/03/18 13:57 02/03/18 13:57 Vital Signs Reviewed: Yes Appearance: Positive: Well-Appearing - pt lying on stretcher - appears comfortable, pleasant, good energy, Pain Distress, Obese Skin: Positive: Warm, Skin Color Reflects Adequate Perfusion - generalized pallor, hirsutism about the face and chest, Dry Head/Face: Positive: Normal Head/Face Inspection Eyes: Positive: Normal, EOMI, Conjunctiva Clear - anicteric sclera ENT: Positive: Hearing grossly normal, Pharynx normal - mucosa somewhat dry Neck: Positive: Supple Respiratory/Lung Sounds: Positive: Clear to Auscultation, Breath Sounds Present Cardiovascular: Positive: Normal, RRR, S1, S2 Abdomen Description: Positive: Soft, [place] Tenderness - + psoas - no rebounding Bowel Sounds: Positive: Present Musculoskeletal: Positive: Normal, Strength/ROM Intact Neurological: Positive: Normal, Sensory/Motor Intact, Alert, Oriented to Person Place, Time, CN Intact II-III Psychiatric: Positive: Normal Diagnostics - Vital Signs Vital Signs Temp Pulse Resp BP Pulse Ox 02/03/18 16:11 95 100 02/03/18 16:05 18 02/03/18 13:57 97.4 F 113 22 116/42 96 - Laboratory Lab Results: Lab Results 02/03/18 02/03/18 02/03/18 Range/Units 16:03 16:03 16:03 WBC 21.4 H (3.5-10.8) 10^3/ul RBC 4.31 (4.00-5.40) 10^6/ul Hgb 12.1 (12.0-16.0) g/dl Hct 37 (35-47) % MCV 86 (80-97) fL MCH 28 (27-31) pg MCHC 33 (31-36) g/dl RDW 15 (10.5-15) % Plt Count 404 (150-450) 10^3/ul MPV 8.2 (7.4-10.4) um3 Neut % (Auto) 88.7 H (38-83) % Lymph % (Auto) 5.8 L (25-47) % Winn % (Auto) 4.8 (0-7) % Eos % (Auto) 0.1 (0-6) % Baso % (Auto) 0.6 (0-2) % Absolute Neuts (auto) 19.0 H (1.5-7.7) 10^3/ul Absolute Lymphs (auto) 1.2 (1.0-4.8) 10^3/ul Absolute Monos (auto) 1.0 H (0-0.8) 10^3/ul Absolute Eos (auto) 0 (0-0.6) 10^3/ul Absolute Basos (auto) 0.1 (0-0.2) 10^3/ul Absolute Nucleated RBC 0 10^3/ul Nucleated RBC % 0 INR (Anticoag Therapy) 1.24 H (0.77-1.02) APTT 33.2 (26.0-36.3) seconds Sodium 136 (135-145) mmol/L Potassium 3.5 (3.5-5.0) mmol/L Chloride 98 L (101-111) mmol/L Carbon Dioxide 29 (22-32) mmol/L Anion Gap 9 (2-11) mmol/L BUN 7 (6-24) mg/dL Creatinine 0.91 (0.51-0.95) mg/dL Est GFR ( Amer) 81.3 (>60) Est GFR (Non-Af Amer) 67.2 (>60) BUN/Creatinine Ratio 7.7 L (8-20) Glucose 94 (70-100) mg/dL Lactic Acid (0.5-2.0) mmol/L Calcium 8.8 (8.6-10.3) mg/dL Magnesium 1.8 L (1.9-2.7) mg/dL Total Bilirubin 0.40 (0.2-1.0) mg/dL AST 18 (13-39) U/L ALT 29 (7-52) U/L Alkaline Phosphatase 55 (34-104) U/L C-Reactive Protein 114.43 H (<8.01) mg/L Total Protein 7.5 (6.4-8.9) g/dL Albumin 3.7 (3.2-5.2) g/dL Globulin 3.8 (2-4) g/dL Albumin/Globulin Ratio 1.0 (1-3) Lipase < 10 L (11.0-82.0) U/L Beta HCG, Quant 0.83 mIU/mL Urine Color Urine Appearance Urine pH (5-9) Ur Specific [place] (1.010-1.030) Urine Protein (Negative) Urine Ketones (Negative) Urine Blood (Negative) Urine Nitrate (Negative) Urine Bilirubin (Negative) Urine Urobilinogen (Negative) Ur Leukocyte Esterase (Negative) Urine WBC (Auto) (Absent) Urine RBC (Auto) (Absent) Ur Squamous Epith Cells (Absent) Urine Bacteria (Absent) Urine Glucose (Negative) 02/03/18 02/03/18 Range/Units 16:03 16:39 WBC (3.5-10.8) 10^3/ul RBC (4.00-5.40) 10^6/ul Hgb (12.0-16.0) g/dl Hct (35-47) % MCV (80-97) fL MCH (27-31) pg MCHC (31-36) g/dl RDW (10.5-15) % Plt Count (150-450) 10^3/ul MPV (7.4-10.4) um3 Neut % (Auto) (38-83) % Lymph % (Auto) (25-47) % Winn % (Auto) (0-7) % Eos % (Auto) (0-6) % Baso % (Auto) (0-2) % Absolute Neuts (auto) (1.5-7.7) 10^3/ul Absolute Lymphs (auto) (1.0-4.8) 10^3/ul Absolute Monos (auto) (0-0.8) 10^3/ul Absolute Eos (auto) (0-0.6) 10^3/ul Absolute Basos (auto) (0-0.2) 10^3/ul Absolute Nucleated RBC 10^3/ul Nucleated RBC % INR (Anticoag Therapy) (0.77-1.02) APTT (26.0-36.3) seconds Sodium (135-145) mmol/L Potassium (3.5-5.0) mmol/L Chloride (101-111) mmol/L Carbon Dioxide (22-32) mmol/L Anion Gap (2-11) mmol/L BUN (6-24) mg/dL Creatinine (0.51-0.95) mg/dL Est GFR ( Amer) (>60) Est GFR (Non-Af Amer) (>60) BUN/Creatinine Ratio (8-20) Glucose (70-100) mg/dL Lactic Acid 1.2 (0.5-2.0) mmol/L Calcium (8.6-10.3) mg/dL Magnesium (1.9-2.7) mg/dL Total Bilirubin (0.2-1.0) mg/dL AST (13-39) U/L ALT (7-52) U/L Alkaline Phosphatase (34-104) U/L C-Reactive Protein (<8.01) mg/L Total Protein (6.4-8.9) g/dL Albumin (3.2-5.2) g/dL Globulin (2-4) g/dL Albumin/Globulin Ratio (1-3) Lipase (11.0-82.0) U/L Beta HCG, Quant mIU/mL Urine Color Yellow Urine Appearance Clear Urine pH 7.0 (5-9) Ur Specific [place] 1.008 L (1.010-1.030) Urine Protein Negative (Negative) Urine Ketones Trace A (Negative) Urine Blood Negative (Negative) Urine Nitrate Negative (Negative) Urine Bilirubin Negative (Negative) Urine Urobilinogen Negative (Negative) Ur Leukocyte Esterase Trace A (Negative) Urine WBC (Auto) 1+(6-10/hpf) A (Absent) Urine RBC (Auto) Trace(0-2/hpf) (Absent) Ur Squamous Epith Cells Present A (Absent) Urine Bacteria 1+ A (Absent) Urine Glucose Negative (Negative) Result Diagrams: 02/03/18 16:03 02/03/18 16:03 Lab Statement: Any lab studies that have been ordered have been reviewed, and results considered in the medical decision making process. Abdominal Pain Fem Course/Dx - Course Course Of Treatment: Patient returns after visit to the ED on 01/25 with continued pain in the right lower quadrant. She was diagnosed on this day with urinary tract infection as well as complex right ovarian cyst without torsion. She reports her UTI symptoms seemed to have improved and at her follow-up will point with PCP today, PCP reports urine looks better also. Patient continues to have right lower quadrant pain which was worse this morning and now is associated with nausea and flashes of heat. She's not tried anything yet for this pain. We initially discussed an ultrasound to evaluate cyst and rule out torsion as well as starting oral contrast in the event that she may need a repeat CT of her abdomen and pelvis. We were hoping to avoid the CT of the abdomen and pelvis however since she just had one 11 days ago. With her white count returning even more elevated today from 01/25 (15-21 today) and ongoing/ worsening of pain, patient proceeded with CT of abdomen and pelvis with contrast. Anbx were also initiated as pt met SIRS criteria - will cover for GI/ pathogens (cipro and flagly). Pt was also not given full cc/kg as she is morbidly obese and this would most likely be detrimental. Discussed w/ Dr. Gutiérrez when labs returned. Her ultrasound revealed a "in the right adnexa, there is an ill-defined avascular structure measuring 6.8 cm in greatest dimension with a cystic portion measuring 2.7 cm in greatest dimension, potentially representing an enlarged ovary. The absence of color flow could be due to ovarian torsion ". Discussed with Dr. De Jesus who is also concerned that this may be torsion. CT results pending. She and Dr. Brunner will consider taking patient to the OR for further investigation pending CT results. Patient is stable condition at time of transition of care. Signed out to Shweta Monroy - Diagnoses Differential Diagnosis: Positive: Appendicitis, Other - ovarian torsion, bowel necrosis, adhesions, urosepsis Provider Diagnoses: Mass of right ovary Discharge - Sign-Out/Discharge Documenting (check all that apply): Sign-Out Patient Signing out patient TO: Inga Ac - Discharge Plan Condition: Stable - Billing Disposition and Condition Condition: STABLE
--- NOTE | 2018-02-03 19:39 | ED ---
Progress - Progress Note Progress Note: patient signed out by Blanca JEROME pending CT and ob consult CT: 1. There is infiltration adjacent to the sigmoid colon and right adnexa. At the right adnexa there is a soft tissue mass measuring up to 5.8 cm in greatest dimension corresponding to the avascular soft tissue mass seen on same day pelvic ultrasound. Potentially this could be due to sigmoid colitis. If this fits clinically with the patient's presentation superior imaging characterization of the sigmoid colon can be made with delayed CT imaging allowing time for the oral contrast to progress to the distal colon for better colon visualization. The differential diagnosis includes gynecologic etiologies such as ovarian torsion or a tubo-ovarian abscess. The above imaging findings and differential diagnosis was discussed over the telephone with Dr. De Jesus shortly after image acquisition on February 03, 2018. 2. Likely hepatic steatosis. 3. Top normal diameter measurement of the gallbladder of uncertain clinical significance. Dr Dawkins saw patient and recommends patient being taken to the OR to evaluated the flow of the ovary. She spoke with dr Brunner who states that can not handle this surgery here as she it too large of a bariatric patient for this facility. she recommends transferring the patient. Course/Dx - Course Course Of Treatment: Patient returns after visit to the ED on 01/25 with continued pain in the right lower quadrant. She was diagnosed on this day with urinary tract infection as well as complex right ovarian cyst without torsion. She reports her UTI symptoms seemed to have improved and at her follow-up will point with PCP today, PCP reports urine looks better also. Patient continues to have right lower quadrant pain which was worse this morning and now is associated with nausea and flashes of heat. She's not tried anything yet for this pain. We initially discussed an ultrasound to evaluate cyst and rule out torsion as well as starting oral contrast in the event that she may need a repeat CT of her abdomen and pelvis. We were hoping to avoid the CT of the abdomen and pelvis however since she just had one 11 days ago. With her white count returning even more elevated today from 01/25 (15-21 today) and ongoing/ worsening of pain, patient proceeded with CT of abdomen and pelvis with contrast. Anbx were also initiated as pt met SIRS criteria - will cover for GI/ pathogens (cipro and flagly). Pt was also not given full cc/kg as she is morbidly obese and this would most likely be detrimental. Discussed w/ Dr. Gutiérrez when labs returned. Her ultrasound revealed a "in the right adnexa, there is an ill-defined avascular structure measuring 6.8 cm in greatest dimension with a cystic portion measuring 2.7 cm in greatest dimension, potentially representing an enlarged ovary. The absence of color flow could be due to ovarian torsion ". Discussed with Dr. De Jesus who is also concerned that this may be torsion. CT results pending. She and Dr. Brunner will consider taking patient to the OR for further investigation pending CT results. Patient is stable condition at time of transition of care. Signed out to Shweta Monroy after ob consult and CT is was decided that the patient needs transfer to a [facility] facility that could handle to go her surgery for ovarian torison. russell miller was consulted and states that would not be able to do surgery for three hours minimum and recommend go to another facility. spoke with dr worthy from [facility] who will have patient go to ED for patient to evaulate for possible torison. - Diagnoses Provider Diagnoses: Mass of right ovary, Ovarian torsion, RLQ abdominal pain Discharge - Sign-Out/Discharge Documenting (check all that apply): Receiving Sign-Out Receiving patient FROM: Blanca Díaz - Discharge Plan Condition: Stable Disposition: TRANS HIGHER LVL OF CARE FAC Referrals: Diane Mejia MD [Primary Care Provider] - - Billing Disposition and Condition Condition: STABLE Disposition: Trans Higher Lvl of Care Fac
--- NOTE | 2018-02-03 19:45 | RAD ---
CLINICAL HISTORY: Right lower quadrant pain. COMPARISON: Very limited same day pelvis US that shows an avascular right adnexal mass measuring up to 6.8cm suspected to the right ovary. CT abdomen pelvis May 17, 2017 TECHNIQUE: Contrast enhanced CT examination of the abdomen and pelvis from the lung bases through the initial tuberosities. The patient received 150 mL Omnipaque 300 intravenously prior to imaging.The patient received oral contrast as well prior to imaging. FINDINGS: Image quality is highly limited by streak artifact caused by the patient's morbid obesity. VISUALIZED LUNG BASES: The visualized lung bases are grossly clear. There is no pleural effusion. ABDOMEN AND PELVIS: The liver is homogenously hypodense relative to the spleen. The spleen, pancreas and adrenal glands are grossly normal in appearance. The gallbladder is top normal in diameter measurement of 5.3 cm. There is no hyperattenuating material visible on CT examination within the gallbladder lumen or signs of acute pericholecystic inflammatory change. The kidneys are normal in appearance without focal mass, calcification or signs of hydronephrosis. The oral contrast has progressed only as far as the midpoint small bowel. The small and large bowel are not distended. The patient's normal appendix is identified in the right lower quadrant measuring 7 mm in diameter (axial image 70). Evaluation of the colon is limited in the absence of oral contrast in the lumen. Beginning at the sigmoid colon there is infiltration of the pericolonic mesenteric fat. There is no definite sigmoid wall thickening. There is no drainable fluid collection. There is no free air. There are no diverticula. There is no gross retroperitoneal or mesenteric lymphadenopathy. The right adnexa there is a soft tissue mass measuring 4.9 x 5.8 cm in the axial plane and approximately 4.5 cm in cephalocaudal projection. This is contiguous with and/or adjacent to the right side of the uterine fundus. There is surrounding infiltration of the pelvic level peritoneal fat around the right adnexa. There is no drainable fluid collection. Along the medial anterior portion of the soft tissue mass there is a poorly circumscribed more low-attenuation focus that could represent a follicle or possibly a forming abscess. The abdominal aorta and iliac arteries are normal in course and diameter. Degenerative changes include multilevel loss of intervertebral disc height involving the lower thoracic and lumbar spine.There are no sinister bone lesions. IMPRESSION: 1. There is infiltration adjacent to the sigmoid colon and right adnexa. At the right adnexa there is a soft tissue mass measuring up to 5.8 cm in greatest dimension corresponding to the avascular soft tissue mass seen on same day pelvic ultrasound. Potentially this could be due to sigmoid colitis. If this fits clinically with the patient's presentation superior imaging characterization of the sigmoid colon can be made with delayed CT imaging allowing time for the oral contrast to progress to the distal colon for better colon visualization. The differential diagnosis includes gynecologic etiologies such as ovarian torsion or a tubo-ovarian abscess. The above imaging findings and differential diagnosis was discussed over the telephone with Dr. De Jesus shortly after image acquisition on February 03, 2018. 2. Likely hepatic steatosis. 3. Top normal diameter measurement of the gallbladder of uncertain clinical significance.
--- NOTE | 2018-02-03 20:04 | CONSULT ---
Consult Consult: TRANSFER NOTE CC: RLQ pain HPI: PT c/o RLQ pain off and on for over a week. She was seen at [facility] ED previously on 01/25 for the same pain. At the time she was dx'd with a UTI which was treated and she was discharged. She had a sono done that day which showed a slightly enlarged ovary with several small cysts. She says the pain improved temporarily but then returned and became more severe today so she returned to the ED. She describes the pain as sharp and intermittent. It is worse with movement, only in the front of her abdomen, no radiation to the back, and always in the same location. She says the only thing that makes it feel better is lying still. She declines specific dysuria but says she has RLQ pain when she urinates. She has had some diarrhea as well this past week but says she isn't eating much either. She says overall she feels exhausted. She had a low grade temp in the ED last visit but has not had any since then. She says she has a h/o recurrent UTIs with one during that was undiagnosed and "didn't show up on the urine test". ROS: declines sxms other than those mentioned in the HPI Allergies: see list Meds: see list PMH: Asthma, arthritis. Had urosepsis after delivery in 2017. Morbid obesity PSH: CS 2017, tumor removal from forehead [employer] Hx: declines h/o PCOS or issues previously. Reports regular menses now. Says she is not using any contraception and she would like to get again. last was a surprise. Soc Hx: Rare alcohol use, Denies tobacco or illicit drug use PE: AVSS Gen: NAD, lying in stretcher Abd: mild tenderness to palpation across lower right abdomen, very obese. Labs reviewed: elevated CRP and WBC. Neg HCG Sono reviewed: enlarged right ovary, 6.8cm, with no blood flow noted, several small cysts. CT results: enlarged ovary, some stranding noted near sigmoid/ adnexa. Assessment/Plan: 42yo F with RLQ pain and enlarged ovary without blood flow is suspicious for ovarian torsion. Differential includes sigmoid colitis, tubo- ovarian abscess, UTI, pyelonephritis, kidney stone, appendicitis. Regardless I think her ovary should be visualized to rule out torsion. Due to her morbid obesity neither myself or Dr. Brunner (the environmental services attendant general surgeon) feel comfortable operating on her. Pt is agreeable to transfer to tertiary care center for possible surgical management.
[2018-02-03 21:58] VITALS: BP 167/84
--- NOTE | 2018-02-06 17:40 | PN ---
Progress Note - Progress Note Date of Service: 02/03/18 Note: Pt. was seen in ER 02/03 for abd. pain. She was dx with questionable ovarian torsion. Given pt.'s weight she was transferred to [facility]. Urine culture today shows 25-50k e.coli. Pt. has a hx of recurrent UTIs. Attempted to call to see if pt. was dc home but there was no answer. Culture was faxed to [facility]. Letter sent to pt.
== END 2018-02-03 21:56 | disposition short-term general hospital (02) ==
LOC: ED 13:55
DX: N83.9 Noninflammatory disorder of ovary, fallopian tube and broad ligament, unspecified (principal); E66.01 Morbid (severe) obesity due to excess calories; N39.0 Urinary tract infection, site not specified; B96.20 Unspecified Escherichia coli [E. coli] as the cause of diseases classified elsewhere
CPT/HCPCS: 36415; 74177; 76830; 80053; 81003; 81015; 83605; 83690; 83735; 84702; 85025; 85610; 85730; 86140; 86850; 86900; 86901; 87077; 87086; 87186; 93005; 96360; 96374; 96375; 96376; 99285; J0744; J2270; J2405; J3490; Q9967

== ENCOUNTER 2020-05-04 09:50 | Inpatient (IN) ==
[2020-05-04] MEDS ORDERED: NS 0.9% 1000 ml BAG 1,000 ML IV ONE ×2 (09:58→09:59)
[2020-05-04] MEDS ORDERED: Clindamycin 900 MG/D5W BAG 900 MG/50 ML BAG IVPB ONE (09:59)
[2020-05-04 10:56] LABS: Hematocrit 37 % (35-47); Mean Corpuscular HGB Conc 33 g/dL (31-36); Mean Corpuscular Hemoglobin 28 pg (27-31); Mean Corpuscular Volume 86 fL (80-97); Mean Platelet Volume 9.3 fL (7.4-10.4); Platelet Count 218 10^3/uL (150-450); Red Blood Count 4.29 10^6 /uL (3.70-4.87); Red Cell Distribution Width 15 % (10-15); White Blood Count 24.2 10^3/uL (3.5-10.8)
[2020-05-04 11:16] LABS: BUN/Creatinine Ratio 11.6 (8-20); EGFR Non-African American 63.3 (>60)
[2020-05-04 11:17] LABS: Albumin 4.2 g/dL (3.2-5.2); Albumin/Globulin Ratio 1.3 (1-3); C Reactive Protein 98.93 mg/L (<8.01); Calcium 8.7 mg/dL (8.6-10.3); EGFR African American 76.6 (>60); Globulin 3.3 g/dL (2-4); Total Bilirubin 0.8 mg/dL (0.2-1.0); Total Protein 7.5 g/dL (6.4-8.9)
[2020-05-04 11:19] LABS: Activated Partial Thrombo Time 30.7 seconds (26.0-38.0); INR 1.29 (0.82-1.09); Troponin I 0.01 ng/mL (<0.03)
[2020-05-04 11:39] LABS: ABS Basophils 0.1 10^3/ul (0-0.2); ABS Lymphocytes 0.4 10^3/ul (1.0-4.8); ABS Monocytes 0.9 10^3/ul (0-0.8); ABS Neutrophils 22.8 10^3/ul (1.5-7.7); Lymphocyte % 1.8 %
[2020-05-04] MEDS ORDERED: Ondansetron 4 mg VIAL 2 MG/ML 2 ml VIAL IV ONE (11:41)
[2020-05-04] MEDS ORDERED: Prochlorperazine 5 mg/ml 2 ml VIAL (10 mg) IV PRN (12:18)
[2020-05-04] MEDS ORDERED: hydrALAZINE 20 mg/ml 1 ML Vial IV IV SLOW PU ONE (12:19)
[2020-05-04] MEDS ORDERED: cefTRIAXone 2 GM ADDV.VIAL 2 GM in NS 0.9% 100 ml BAG 100 ML IV SCH (14:00)
[2020-05-04] MEDS: Heparin 5000 UNITS/ML 1 mL VIAL SUBCUT SCH ×2 (15:05→23:01)
[2020-05-04] MEDS: NS 0.9% 1000 ml BAG 1,000 ML IV SCH (15:26)
[2020-05-04] MEDS: ceFAZolin 2 GM PREMIX 2 GM/50 ML BAG IVPB SCH (23:01)
[2020-05-05] MEDS: NS 0.9% 1000 ml BAG 1,000 ML IV SCH ×3 (04:33→22:47)
[2020-05-05 04:59] LABS: Urine Appearance Cloudy; Urine Bilirubin Negative (Negative); Urine Blood 3+ (Negative); Urine Color Yellow; Urine Glucose Negative (Negative); Urine Ketones Negative (Negative); Urine Nitrite Negative (Negative); Urine Protein Negative (Negative); Urine Specific Gravity 1.015 (1.010-1.030); Urine Urobilinogen Negative (Negative)
[2020-05-05 05:06] LABS: Urine Bacteria Absent (Absent); Urine Red Blood Cell 3+(>10/hpf) (Absent); Urine Squamous Epithelial Cell Present (Absent); Urine White Blood Cell 2+(11-20/hpf) (Absent)
[2020-05-05] MEDS: ceFAZolin 2 GM PREMIX 2 GM/50 ML BAG IVPB SCH ×2 (05:22→13:27)
[2020-05-05] MEDS: Heparin 5000 UNITS/ML 1 mL VIAL SUBCUT SCH ×3 (05:22→22:46)
[2020-05-05 07:45] LABS: ABS Lymphocytes 0.6 10^3/ul (1.0-4.8); ABS Monocytes 0.5 10^3/ul (0-0.8); ABS Neutrophils 10.9 10^3/ul (1.5-7.7); Hematocrit 31 % (35-47); Hemoglobin 10.5 g/dL (12.0-16.0); Lymphocyte % 4.8 %; Mean Corpuscular HGB Conc 34 g/dL (31-36); Mean Corpuscular Hemoglobin 30 pg (27-31); Mean Corpuscular Volume 88 fL (80-97); Mean Platelet Volume 9.4 fL (7.4-10.4); Platelet Count 165 10^3/uL (150-450); Red Blood Count 3.54 10^6 /uL (3.70-4.87); Red Cell Distribution Width 15 % (10-15); White Blood Count 12.1 10^3/uL (3.5-10.8)
[2020-05-05 08:10] LABS: BUN/Creatinine Ratio 14.4 (8-20); C Reactive Protein 214.03 mg/L (<8.01); Calcium 7.7 mg/dL (8.6-10.3); Potassium 3.5 mmol/L (3.5-5.0)
[2020-05-05] MEDS ORDERED: Influenza VAC *QUAD* 2020-21* 0.5 ML SYRINGE IM ONE (09:00)
[2020-05-05] MEDS ORDERED: Potassium Chlor 20 meq TAB.ER PO ONE (13:09)
[2020-05-05] MEDS ORDERED: NS 0.9% 500 ml BAG 500 ML IV ONE ×2 (14:28→17:10)
[2020-05-05] MEDS ORDERED: Albuterol HFA INHALER 8 gm MDI INH PRN (17:19)
[2020-05-05 21:07] LABS: Urine Appearance Clear; Urine Bilirubin Negative (Negative); Urine Blood 2+ (Negative); Urine Color Yellow; Urine Glucose Negative (Negative); Urine Ketones Negative (Negative); Urine Nitrite Negative (Negative); Urine Protein Negative (Negative); Urine Specific Gravity 1.006 (1.010-1.030); Urine Urobilinogen Negative (Negative)
[2020-05-05 21:19] LABS: Urine Bacteria Absent (Absent); Urine Red Blood Cell Trace(0-2/hpf) (Absent); Urine Squamous Epithelial Cell Present (Absent); Urine White Blood Cell Absent (Absent)
[2020-05-05] MEDS: cefTRIAXone 2 GM ADDV.VIAL 2 GM in NS 0.9% 100 ml BAG 100 ML IV SCH (22:46)
[2020-05-06] MEDS: Heparin 5000 UNITS/ML 1 mL VIAL SUBCUT SCH (06:05)
[2020-05-06] MEDS: NS 0.9% 1000 ml BAG 1,000 ML IV SCH ×2 (08:37→17:28)
[2020-05-06 08:43] LABS: BUN/Creatinine Ratio 11.7 (8-20); Calcium 7.8 mg/dL (8.6-10.3); EGFR African American 97.7 (>60); EGFR Non-African American 80.7 (>60); Potassium 3.9 mmol/L (3.5-5.0)
[2020-05-06 08:48] LABS: Hematocrit 31 % (35-47); Hemoglobin 10.2 g/dL (12.0-16.0); Mean Corpuscular HGB Conc 33 g/dL (31-36); Mean Corpuscular Hemoglobin 29 pg (27-31); Mean Corpuscular Volume 89 fL (80-97); Red Blood Count 3.49 10^6 /uL (3.70-4.87); Red Cell Distribution Width 15 % (10-15); White Blood Count 9.4 10^3/uL (3.5-10.8)
[2020-05-06 10:02] LABS: ABS Lymphocytes 1.1 10^3/ul (1.0-4.8); ABS Monocytes 0.7 10^3/ul (0-0.8); ABS Neutrophils 7.5 10^3/ul (1.5-7.7); Eosinophil % 0.4 %
[2020-05-06 10:07] LABS: Mean Platelet Volume 9.5 fL (7.4-10.4); Platelet Count 98 10^3/uL (150-450)
[2020-05-06] MEDS ORDERED: Midazolam 5 mg/5 ml VIAL 1 mg/ml 5 ml VIAL (5 mg) ONE (15:01)
[2020-05-06] MEDS ORDERED: Naloxone 0.4 mg VIAL 0.4 mg/ml 1 ml VIAL ONE (15:02)
[2020-05-06] MEDS ORDERED: Flumazenil 0.5 mg/5 ml 0.1 MG/ML 5 ml VIAL ONE (15:02)
[2020-05-06] MEDS ORDERED: fentaNYL 100 mcg/2 ml 50 MCG/ML VIAL ONE (15:02)
[2020-05-06] MEDS ORDERED: diPHENhydraMINE IV 50 MG/ML 1 ml VIAL (BENADRYL) SLOW PUSH ONE (17:34)
[2020-05-06] MEDS: cefTRIAXone 2 GM ADDV.VIAL 2 GM in NS 0.9% 100 ml BAG 100 ML IV SCH (20:31)
[2020-05-07] MEDS: NS 0.9% 1000 ml BAG 1,000 ML IV SCH ×2 (01:56→09:40)
[2020-05-07 07:01] LABS: ABS Lymphocytes 1.4 10^3/ul (1.0-4.8); ABS Monocytes 0.7 10^3/ul (0-0.8); ABS Neutrophils 3.8 10^3/ul (1.5-7.7); Eosinophil % 0.8 %; Hematocrit 29 % (35-47); Hemoglobin 9.7 g/dL (12.0-16.0); Lymphocyte % 23.7 %; Mean Corpuscular HGB Conc 34 g/dL (31-36); Mean Corpuscular Hemoglobin 30 pg (27-31); Mean Corpuscular Volume 88 fL (80-97); Mean Platelet Volume 9.7 fL (7.4-10.4); Platelet Count 152 10^3/uL (150-450); Red Blood Count 3.29 10^6 /uL (3.70-4.87); Red Cell Distribution Width 15 % (10-15); White Blood Count 6.1 10^3/uL (3.5-10.8)
[2020-05-07 07:15] LABS: CO2 Carbon Dioxide 21 mmol/L (22-32); Calcium 7.9 mg/dL (8.6-10.3); Chloride 105 mmol/L (101-111); Sodium 136 mmol/L (135-145)
[2020-05-07 07:21] LABS: BUN/Creatinine Ratio 11.7 (8-20); Blood Urea Nitrogen 9 mg/dL (6-24); EGFR African American 97.7 (>60); EGFR Non-African American 80.7 (>60); Glucose 82 mg/dL (70-100)
[2020-05-07 07:59] LABS: Anion Gap 10 mmol/L (2-11)
[2020-05-07] MEDS ORDERED: Potassium Chlor 20 meq TAB.ER PO ONE (12:18)
[2020-05-07] MEDS ORDERED: Nystatin SUSPENSION 100,000 UNITS/ML UDC PO SCH (17:00)
[2020-05-07 17:13] VITALS: BP 130/66
[2020-05-08 21:05] LABS: HIT ELISA < 0.075 OD (<0.400)
== END 2020-05-07 18:15 | disposition home or self-care (01) | DRG 720 ==
LOC: ED 09:50 → MED 12:04
PROVIDERS: ADMIT Internal Medicine; ATTEND Internal Medicine

== ENCOUNTER 2022-04-04 16:51 | Inpatient (IN) ==
[2022-04-04] MEDS ORDERED: ceFAZolin 1 GM ADVAN 1 GM in NS 0.9% 50 ML 50 ML IVPB ONE (17:40)
[2022-04-04] MEDS ORDERED: NS 0.9% 1000 ml BAG 1,000 ML IV ONE (17:50)
[2022-04-04 18:05] LABS: Hematocrit 39 % (35-47); Hemoglobin 12.7 g/dL (12.0-16.0); Mean Corpuscular HGB Conc 33 g/dL (31-36); Mean Corpuscular Hemoglobin 29 pg (27-31); Mean Corpuscular Volume 87 fL (80-97); Mean Platelet Volume 9.6 fL (7.4-10.4); Platelet Count 213 10^3/uL (150-450); Red Blood Count 4.44 10^6 /uL (3.70-4.87); Red Cell Distribution Width 15 % (10-15); White Blood Count 22.9 10^3/uL (3.5-10.8)
[2022-04-04 18:11] LABS: INR 1.33 (0.89-1.11)
[2022-04-04 18:41] LABS: Albumin/Globulin Ratio 1.3 (1-3); Calcium 8.8 mg/dL (8.6-10.3); Globulin 3.1 g/dL (2-4); Potassium 4.2 mmol/L (3.5-5.0); Total Bilirubin 0.9 mg/dL (0.2-1.0); Total Protein 7.1 g/dL (6.4-8.9); eGFR CKD-EPI 74.8 (>60)
[2022-04-04 19:19] LABS: ABS Lymphocytes 0.4 10^3/ul (1.0-4.8); ABS Monocytes 0.8 10^3/ul (0-0.8); ABS Neutrophils 21.6 10^3/ul (1.5-7.7); Lymphocyte % 1.9 %
[2022-04-04] MEDS: Enoxaparin 40 MG/0.4 ML SYR SUBCUT SCH (20:48)
[2022-04-04] MEDS ORDERED: ceFAZolin 1 GM ADVAN 1 GM in NS 0.9% 50 ML 50 ML IVPB SCH (21:00)
[2022-04-05] MEDS ORDERED: ceFAZolin 1 GM X ONE DOSE (AddVan) IVPB
[2022-04-05] MEDS: NS 0.9% 1000 ml BAG 1,000 ML IV SCH ×2 (00:16→11:07)
[2022-04-05] MEDS: ceFAZolin 1 GM ADVAN 1 GM in NS 0.9% 50 ML 50 ML IVPB SCH ×4 (05:13→23:40)
[2022-04-05 11:13] LABS: ABS Lymphocytes 0.9 10^3/ul (1.0-4.8); ABS Monocytes 0.5 10^3/ul (0-0.8); ABS Neutrophils 13.5 10^3/ul (1.5-7.7); Hematocrit 39 % (35-47); Hemoglobin 12.5 g/dL (12.0-16.0); Lymphocyte % 5.9 %; Mean Corpuscular HGB Conc 32 g/dL (31-36); Mean Corpuscular Hemoglobin 29 pg (27-31); Mean Corpuscular Volume 88 fL (80-97); Mean Platelet Volume 9.2 fL (7.4-10.4); Platelet Count 195 10^3/uL (150-450); Red Blood Count 4.41 10^6 /uL (3.70-4.87); Red Cell Distribution Width 15 % (10-15); White Blood Count 14.9 10^3/uL (3.5-10.8)
[2022-04-05 11:58] LABS: C Reactive Protein 189.27 mg/L (<8.01); Calcium 8.5 mg/dL (8.6-10.3); Potassium 3.9 mmol/L (3.5-5.0)
[2022-04-05] MEDS ORDERED: Lactated Ringers 1000 ml BAG 1,000 ML IV ONE (12:59)
[2022-04-05] MEDS: Nystatin TOP POWDER 15 GM BTL TOPICAL SCH ×2 (15:47→20:10)
[2022-04-05] MEDS: Enoxaparin 40 MG/0.4 ML SYR SUBCUT SCH (20:10)
[2022-04-05 22:56] LABS: ABS Lymphocytes 1.4 10^3/ul (1.0-4.8); ABS Monocytes 0.7 10^3/ul (0-0.8); ABS Neutrophils 11.2 10^3/ul (1.5-7.7); Eosinophil % 0.1 %; Hematocrit 36 % (35-47); Hemoglobin 11.7 g/dL (12.0-16.0); Lymphocyte % 10.5 %; Mean Corpuscular HGB Conc 32 g/dL (31-36); Mean Corpuscular Hemoglobin 28 pg (27-31); Mean Corpuscular Volume 88 fL (80-97); Mean Platelet Volume 9.2 fL (7.4-10.4); Platelet Count 199 10^3/uL (150-450); Red Blood Count 4.13 10^6 /uL (3.70-4.87); Red Cell Distribution Width 15 % (10-15); White Blood Count 13.4 10^3/uL (3.5-10.8)
[2022-04-05 23:18] LABS: Albumin 3.4 g/dL (3.2-5.2); Albumin/Globulin Ratio 1.2 (1-3); Calcium 8.3 mg/dL (8.6-10.3); Globulin 2.8 g/dL (2-4); Potassium 3.7 mmol/L (3.5-5.0); Total Bilirubin 0.8 mg/dL (0.2-1.0); Total Protein 6.2 g/dL (6.4-8.9); eGFR CKD-EPI 67.9 (>60)
[2022-04-06] MEDS: ceFAZolin 1 GM ADVAN 1 GM in NS 0.9% 50 ML 50 ML IVPB SCH ×2 (05:11→11:44)
[2022-04-06 06:08] LABS: ABS Lymphocytes 1.2 10^3/ul (1.0-4.8); ABS Monocytes 0.7 10^3/ul (0-0.8); Hematocrit 35 % (35-47); Hemoglobin 11.7 g/dL (12.0-16.0); Lymphocyte % 10.9 %; Mean Corpuscular HGB Conc 34 g/dL (31-36); Mean Corpuscular Hemoglobin 30 pg (27-31); Mean Corpuscular Volume 88 fL (80-97); Mean Platelet Volume 9.3 fL (7.4-10.4); Platelet Count 176 10^3/uL (150-450); Red Blood Count 3.96 10^6 /uL (3.70-4.87); Red Cell Distribution Width 15 % (10-15); White Blood Count 10.9 10^3/uL (3.5-10.8)
[2022-04-06 06:30] LABS: Calcium 8.3 mg/dL (8.6-10.3); Magnesium 1.9 mg/dL (1.9-2.7); Potassium 4.2 mmol/L (3.5-5.0); eGFR CKD-EPI 77.8 (>60)
[2022-04-06] MEDS: Nystatin TOP POWDER 15 GM BTL TOPICAL SCH ×2 (07:44→21:20)
[2022-04-06] MEDS: cefTRIAXone 2 gm/50 mL D5W 2 GM/50 ML BAG IV SCH (17:19)
[2022-04-06] MEDS: Enoxaparin 40 MG/0.4 ML SYR SUBCUT SCH (21:20)
[2022-04-07] MEDS: cefTRIAXone 2 gm/50 mL D5W 2 GM/50 ML BAG IV SCH ×2 (05:21→17:03)
[2022-04-07] MEDS: Nystatin TOP POWDER 15 GM BTL TOPICAL SCH ×2 (08:36→20:19)
[2022-04-07 08:37] LABS: ABS Eosinophils 0.1 10^3/ul (0-0.6); ABS Lymphocytes 1.2 10^3/ul (1.0-4.8); ABS Monocytes 0.8 10^3/ul (0-0.8); ABS Neutrophils 4.6 10^3/ul (1.5-7.7); Hematocrit 35 % (35-47); Hemoglobin 11.4 g/dL (12.0-16.0); Lymphocyte % 18.3 %; Mean Corpuscular HGB Conc 33 g/dL (31-36); Mean Corpuscular Hemoglobin 29 pg (27-31); Mean Corpuscular Volume 88 fL (80-97); Mean Platelet Volume 9.5 fL (7.4-10.4); Nucleated Red Blood Cells % 0.1; Platelet Count 194 10^3/uL (150-450); Red Blood Count 3.96 10^6 /uL (3.70-4.87); Red Cell Distribution Width 15 % (10-15); White Blood Count 6.8 10^3/uL (3.5-10.8)
[2022-04-07 09:06] LABS: C Reactive Protein 160.96 mg/L (<8.01); Calcium 8.4 mg/dL (8.6-10.3); Potassium 4.4 mmol/L (3.5-5.0)
[2022-04-07] MEDS: Enoxaparin 40 MG/0.4 ML SYR SUBCUT SCH (20:16)
[2022-04-08] MEDS: cefTRIAXone 2 gm/50 mL D5W 2 GM/50 ML BAG IV SCH (05:37)
[2022-04-08 06:48] LABS: ABS Eosinophils 0.1 10^3/ul (0-0.6); ABS Lymphocytes 1.4 10^3/ul (1.0-4.8); ABS Monocytes 0.7 10^3/ul (0-0.8); ABS Neutrophils 3.4 10^3/ul (1.5-7.7); Eosinophil % 1.7 %; Hematocrit 33 % (35-47); Hemoglobin 10.8 g/dL (12.0-16.0); Lymphocyte % 25.2 %; Mean Corpuscular HGB Conc 33 g/dL (31-36); Mean Corpuscular Hemoglobin 29 pg (27-31); Mean Corpuscular Volume 88 fL (80-97); Mean Platelet Volume 9.2 fL (7.4-10.4); Nucleated Red Blood Cells % 0.1; Platelet Count 218 10^3/uL (150-450); Red Blood Count 3.75 10^6 /uL (3.70-4.87); Red Cell Distribution Width 15 % (10-15); White Blood Count 5.7 10^3/uL (3.5-10.8)
[2022-04-08 07:10] LABS: Calcium 8.3 mg/dL (8.6-10.3); Potassium 4.2 mmol/L (3.5-5.0); eGFR CKD-EPI 90.8 (>60)
[2022-04-08] MEDS: Nystatin TOP POWDER 15 GM BTL TOPICAL SCH (08:01)
[2022-04-08 11:55] VITALS: BP 151/77
== END 2022-04-08 13:42 | disposition home or self-care (01) | DRG 720 ==
LOC: ED 16:51 → EDHOLD 20:03 → SSU 04-05 02:41
PROVIDERS: ADMIT Hospitalist; ATTEND Hospitalist

== ENCOUNTER 2024-07-03 16:34 | Observation (INO) ==
[2024-07-03 17:12] LABS: ABS Basophils 0.2 10^3/uL (0.0-0.1); ABS Eosinophils 0.1 10^3/uL (0.0-0.5); ABS Lymphocytes 2.7 10^3/uL (1.0-4.8); ABS Nucleated RBC 0.02 10^3/ul; Eosinophil % 1.4 %; Hematocrit 40.8 % (35-45); Hemoglobin 13.7 g/dL (11.5-14.3); Lymphocyte % 27.2 %; Mean Corpuscular Hemoglobin 29.6 pg (27-33); Mean Corpuscular Hgb Conc 33.6 g/dL (31-36); Mean Corpuscular Volume 88.2 fL (80-97); Mean Platelet Volume 9.3 fL (7.5-11.2); Nucleated Red Blood Cells % 0.2 %/100WBC (0.0-0.8); Platelet Count 259 10^3/uL (150-450); Red Blood Count 4.62 10^6/uL (3.63-4.92); Red Cell Distribution Width 14.4 % (12-17)
[2024-07-03 17:22] LABS: INR 1.11 (0.85-1.14)
[2024-07-03 18:11] LABS: Albumin/Globulin Ratio 1.4 (1-3); Calcium 8.7 mg/dL (8.6-10.3); Creatinine, Serum 0.91 mg/dL (0.51-0.95); Globulin 2.9 g/dL (2-4); Total Bilirubin 0.4 mg/dL (0.2-1.0); Total Protein 6.9 g/dL (6.4-8.9); eGFR CKD-EPI 76.9 (>60)
[2024-07-03 18:36] LABS: Potassium 3.9 mmol/L (3.5-5.0)
[2024-07-03 19:38] LABS: High Sensitivity Troponin 1 Hr 91 pg/mL (<15)
[2024-07-03 20:52] LABS: High Sensitivity Troponin 3 Hr 116 pg/mL (<15)
[2024-07-03 21:21] LABS: TSH Ultra Thyroid Stim Horm 1.66 mcIU/mL (0.34-5.60)
[2024-07-04] MEDS ORDERED: Enoxaparin 40 MG/0.4 ML SYR SUBCUT SCH (01:00)
[2024-07-04] MEDS: Iohexol 350 (CONTRAST) 500 ML MDV IV ONE (03:00)
[2024-07-04 07:47] LABS: ABS Basophils 0.1 10^3/uL (0.0-0.1); ABS Eosinophils 0.1 10^3/uL (0.0-0.5); ABS Lymphocytes 1.8 10^3/uL (1.0-4.8); ABS Monocytes 0.6 10^3/uL (0.0-0.9); Hematocrit 37.2 % (35-45); Hemoglobin 12.6 g/dL (11.5-14.3); Lymphocyte % 27.6 %; Mean Corpuscular Volume 88.4 fL (80-97); Mean Platelet Volume 9.2 fL (7.5-11.2); Platelet Count 219 10^3/uL (150-450); Red Blood Count 4.21 10^6/uL (3.63-4.92); Red Cell Distribution Width 14.5 % (12-17); White Blood Count 6.7 10^3/uL (3.8-11.8)
[2024-07-04] MEDS: Enoxaparin 100 MG/ML SYR SUBCUT SCH (11:01)
[2024-07-04] MEDS: Sulfur Hexaflouride MICROSPHR 25 MG VIAL IV PRN (12:53)
[2024-07-04 16:44] LABS: High Sensitivity Troponin 1 Hr 48 pg/mL (<15)
[2024-07-04 18:01] LABS: High Sensitivity Troponin 3 Hr 66 pg/mL (<15)
[2024-07-05 06:18] LABS: ABS Basophils 0.1 10^3/uL (0.0-0.1); ABS Eosinophils 0.1 10^3/uL (0.0-0.5); ABS Lymphocytes 2.5 10^3/uL (1.0-4.8); ABS Monocytes 0.6 10^3/uL (0.0-0.9); ABS Neutrophils 3.6 10^3/uL (1.5-7.6); Hematocrit 39.4 % (35-45); Hemoglobin 13.4 g/dL (11.5-14.3); Lymphocyte % 36.2 %; Mean Corpuscular Hemoglobin 29.9 pg (27-33); Mean Corpuscular Volume 88.1 fL (80-97); Mean Platelet Volume 9.6 fL (7.5-11.2); Nucleated Red Blood Cells % 0.1 %/100WBC (0.0-0.8); Platelet Count 228 10^3/uL (150-450); Red Blood Count 4.47 10^6/uL (3.63-4.92); Red Cell Distribution Width 14.2 % (12-17); White Blood Count 6.9 10^3/uL (3.8-11.8)
[2024-07-05 06:44] LABS: Calcium 8.5 mg/dL (8.6-10.3); Creatinine, Serum 0.87 mg/dL (0.51-0.95); Magnesium 2.1 mg/dL (1.9-2.7); Phosphorus 3.4 mg/dL (2.5-5.0); Potassium 4.1 mmol/L (3.5-5.0); eGFR CKD-EPI 81.1 (>60)
[2024-07-05 14:08] VITALS: BP 143/81
[2024-07-05 15:09] LABS: HDL Cholesterol 44.6 mg/dL
== END 2024-07-05 16:45 | disposition home or self-care (01) ==
LOC: ED 16:34 → EDHOLD 16:34 → SUATTDRO 07-04 00:38 → MEDTELE 07-04 08:32
PROVIDERS: ADMIT Internal Medicine; ATTEND Student in an Organized Health Care Education/Training Program